=== PATIENT | male | born 1960 | race Caucasian/White ===

== ENCOUNTER 2017-05-14 18:16 | Inpatient (IN) | payer MEDICARE, OTHER ==
[~2017-05-14] VITALS: Ht 162.6 cm; Wt 61.6 kg
[~2017-05-14 18:16] MED LIST: ASPI-556 PO; CALC-724 PO; DOCU-269 PO; FERR324T4 PO; FLUV50TA2 PO; LEVO50TA4 PO; LORA-366 PO; LORA10TA7 PO; LOVA20TA3 PO; RISP.5 PO
[2017-05-14] MEDS ORDERED: AMOX1TAB15 PO (18:40)
[2017-05-14] MEDS ORDERED: SODIUM CHLORIDE 0.9% 1,000 ML IV ONE (19:30)
[2017-05-14 20:37] LABS: HEMATOCRIT 25.1 % (41-53); HEMOGLOBIN 8.7 g/dL (13.5-17.5); MEAN CORPUSCULAR HEMOGLOBIN 32.3 pg (26.0-34.0); MEAN CORPUSCULAR HGB CONC 34.7 G/dL (31.0-37.0); MEAN CORPUSCULAR VOLUME 93 fL (80-100); PLATELET COUNT (AUTO) 284 K/uL (150-450); RED CELL DISTRIBUTION WIDTH 13.9 % (11.5-14.5)
[2017-05-14 20:57] LABS: ALBUMIN 2.3 g/dL (3.4-5.0); CREATININE 1.35 mg/dL (0.60-1.30); POTASSIUM 3.8 mmol/L (3.5-5.1); TOTAL PROTEIN, SERUM 6.6 g/dL (6.4-8.2)
[2017-05-14 20:58] LABS: LACTIC ACID 1.1 mmol/L (0.4-2.0)
[2017-05-14 21:25] LABS: BAND NEUTROPHILS % (MANUAL) 14 % (1-5); BASOPHILS % (MANUAL) 2 % (0-2); EOSINOPHILS % (MANUAL) 2 % (1-6); LYMPHOCYTES % (MANUAL) 11 % (22-44); MONOCYTES % (MANUAL) 3 % (2-9); SEGMENTED NEUTROPHILS % 68 % (40-70)
[2017-05-14] MEDS ORDERED: PIPERACILLIN/TAZO 3.375 GM/D5W 50 ML IV ONE (21:30)
[2017-05-14] MEDS ORDERED: VANCOMYCIN HCL 1.25 GM in DEXTROSE 5%-WATER 250 ML IV ONE (21:30)
[2017-05-14 21:31] LABS: INFLUENZA TYPE A NEGATIVE FOR TYPE A (NEGATIVE); INFLUENZA TYPE B NEGATIVE FOR TYPE B (NEGATIVE)
[2017-05-14 21:39] LABS: BILIRUBIN,TOTAL 0.1 mg/dL (0.1-1.0); CALCIUM, TOTAL 8.3 mg/dL (8.8-10.5)
[2017-05-14] MEDS ORDERED: ACETAMINOPHEN 325 MG TABLET PO PRN ×2 (21:45→22:15)
[2017-05-14] MEDS ORDERED: VANCOMYCIN HCL 1 GM/D5% WATER 200 ML IV ONE (21:45)
[2017-05-14] MEDS ORDERED: ALBUTEROL SULFATE 2.5 MG/0.5 ML NEB SOLUTION NEB ONE (21:45)
[2017-05-14] MEDS ORDERED: 0.9% SODIUM CHLORIDE 10 ML SYRINGE IVP PRN (21:45)
[2017-05-14] MEDS ORDERED: ONDANSETRON HCL 4 MG/2 ML VIAL IVP PRN ×2 (21:45→22:15)
[2017-05-14] MEDS ORDERED: IPRATROPIUM BROMIDE 0.5 MG/2.5 ML NEB SOLUTION NEB ONE (21:45)
[2017-05-14] MEDS ORDERED: BISACODYL 10 MG RECTAL RECTAL SUPPOSITORY PR PRN (22:15)
[2017-05-14] MEDS ORDERED: HYDROCODONE/ACETAMINOPHEN 5-325 MG TABLET PO PRN (22:15)
[2017-05-14] MEDS ORDERED: MAGNESIUM HYDROXIDE SUSPENSION 30 ML UDCUP PO PRN (22:15)
[2017-05-14] MEDS ORDERED: MORPHINE SULFATE 2 MG/ML SYRINGE IVP PRN (22:15)
[2017-05-14 23:30] VITALS: BP 109/61
[2017-05-15] MEDS: HEPARIN SODIUM,PORCINE 5,000 UNITS/ML VIAL SQ SCH ×3 (00:07→17:01)
[2017-05-15 02:59] VITALS: BP 113/56
[2017-05-15] MEDS ORDERED: PIPERACILLIN/TAZO 3.375 GM/D5W 50 ML IV SCH (04:00)
[2017-05-15] MEDS: PIPERACILLIN/TAZO 3.375 GM/D5W 50 ML IV SCH ×4 (04:05→23:39)
[2017-05-15] MEDS: LEVOTHYROXINE SODIUM 50 MCG TABLET PO SCH (06:25)
[2017-05-15 06:37] LABS: BASOPHILS % (AUTO) 0.8 % (0.0-2.0); EOSINOPHILS % (AUTO) 0.2 % (1.0-6.0); HEMATOCRIT 25.1 % (41-53); HEMOGLOBIN 8.7 g/dL (13.5-17.5); LYMPHOCYTES # (AUTO) 1.2 K/uL (1.0-4.8); LYMPHOCYTES % (AUTO) 9.7 % (22.0-44.0); MEAN CORPUSCULAR HEMOGLOBIN 32.4 pg (26.0-34.0); MEAN CORPUSCULAR HGB CONC 34.8 G/dL (31.0-37.0); MEAN CORPUSCULAR VOLUME 93 fL (80-100); MONOCYTES # (AUTO) 2.1 K/uL (0.1-1.0); NEUTROPHILS # (AUTO) 8.8 K/uL (1.8-7.7); NEUTROPHILS % (AUTO) 72.3 % (40.0-70.0); PLATELET COUNT (AUTO) 277 K/uL (150-450); RED BLOOD CELL COUNT(AUTO) 2.69 MIL/uL (4.50-5.90); RED CELL DISTRIBUTION WIDTH 14.1 % (11.5-14.5)
[2017-05-15 06:54] LABS: CALCIUM, TOTAL 8.1 mg/dL (8.8-10.5); CREATININE 1.29 mg/dL (0.60-1.30); POTASSIUM 3.6 mmol/L (3.5-5.1)
[2017-05-15 08:00] VITALS: BP 111/64
[2017-05-15] MEDS: VANCOMYCIN HCL 750 MG in DEXTROSE 5%-WATER 150 ML IV SCH ×2 (09:20→20:51)
[2017-05-15] MEDS ORDERED: GuaiFENesin/D-METHORPHAN [SUGAR-FREE] 200-20MG/10 ML SYRUP UDCUP PO PRN (12:00)
[2017-05-15] MEDS ORDERED: IPRATROPIUM BROMIDE 0.5 MG/2.5 ML NEB SOLUTION NEB PRN (12:00)
[2017-05-15] MEDS ORDERED: ALBUTEROL SULFATE 2.5 MG/0.5 ML NEB SOLUTION NEB PRN (12:00)
[2017-05-15 12:18] VITALS: BP 121/69
[2017-05-15] MEDS: LORATADINE 10 MG TABLET PO SCH (14:35)
[2017-05-15] MEDS: PANTOPRAZOLE SODIUM 40 MG DR TABLET PO SCH (14:35)
[2017-05-15] MEDS: ASPIRIN 81 MG EC TABLET PO SCH (14:35)
[2017-05-15] MEDS: DOCUSATE SODIUM 100 MG CAPSULE PO SCH ×2 (14:35→20:50)
[2017-05-15] MEDS: FluvoxaMINE MALEATE 50 MG TABLET PO SCH ×2 (14:37→21:02)
[2017-05-15] MEDS: IPRATROPIUM BROMIDE 0.5 MG/2.5 ML NEB SOLUTION NEB SCH ×2 (15:55→19:53)
[2017-05-15] MEDS: ALBUTEROL SULFATE 2.5 MG/0.5 ML NEB SOLUTION NEB SCH ×2 (15:55→19:53)
[2017-05-15 16:13] VITALS: BP 107/61
[2017-05-15] MEDS: ZOLPIDEM TARTRATE 5 MG TABLET PO PRN (19:20)
[2017-05-15 19:22] VITALS: BP 148/70
[2017-05-15] MEDS: LOVASTATIN 20 MG TABLET PO SCH (20:50)
[2017-05-15 23:20] VITALS: BP 126/65
[2017-05-16] MEDS: HEPARIN SODIUM,PORCINE 5,000 UNITS/ML VIAL SQ SCH ×4 (01:16→23:40)
[2017-05-16] MEDS: ALBUTEROL SULFATE 2.5 MG/0.5 ML NEB SOLUTION NEB SCH ×4 (03:27→19:38)
[2017-05-16] MEDS: IPRATROPIUM BROMIDE 0.5 MG/2.5 ML NEB SOLUTION NEB SCH ×4 (03:27→19:38)
[2017-05-16 04:34] VITALS: BP 110/69
[2017-05-16] MEDS: PIPERACILLIN/TAZO 3.375 GM/D5W 50 ML IV SCH ×4 (04:51→23:38)
[2017-05-16] MEDS: LEVOTHYROXINE SODIUM 50 MCG TABLET PO SCH (06:06)
[2017-05-16 06:47] LABS: BASOPHILS % (AUTO) 1.3 % (0.0-2.0); EOSINOPHILS % (AUTO) 2.3 % (1.0-6.0); HEMATOCRIT 27.4 % (41-53); HEMOGLOBIN 9.8 g/dL (13.5-17.5); LYMPHOCYTES # (AUTO) 1.3 K/uL (1.0-4.8); LYMPHOCYTES % (AUTO) 12.6 % (22.0-44.0); MEAN CORPUSCULAR HGB CONC 35.6 G/dL (31.0-37.0); MEAN CORPUSCULAR VOLUME 93 fL (80-100); MONOCYTES # (AUTO) 1.8 K/uL (0.1-1.0); MONOCYTES % (AUTO) 17.3 % (2.0-9.0); NEUTROPHILS # (AUTO) 6.9 K/uL (1.8-7.7); NEUTROPHILS % (AUTO) 66.5 % (40.0-70.0); PLATELET COUNT (AUTO) 328 K/uL (150-450); RED BLOOD CELL COUNT(AUTO) 2.95 MIL/uL (4.50-5.90); RED CELL DISTRIBUTION WIDTH 13.8 % (11.5-14.5)
[2017-05-16 07:26] LABS: ANION GAP 8 mmol/L (8-16); CALCIUM, TOTAL 8.4 mg/dL (8.8-10.5); CARBON DIOXIDE 29 mmol/L (22-29); CHLORIDE 106 mmol/L (98-107); CREATININE 1.14 mg/dL (0.60-1.30); GLOMERULAR FILTR. RATE CALC > 60 mL/min (>60); GLUCOSE,RANDOM 100 mg/dL (70-110); POTASSIUM 3.6 mmol/L (3.5-5.1); SODIUM SERUM 143 mmol/L (136-145); UREA NITROGEN, BLOOD 17 mg/dL (7-18); VANCOMYCIN,RANDOM 17.6 mcg/mL (25.0-50.0)
[2017-05-16 08:01] VITALS: BP 106/67
[2017-05-16] MEDS: ASPIRIN 81 MG EC TABLET PO SCH (08:09)
[2017-05-16] MEDS: FluvoxaMINE MALEATE 50 MG TABLET PO SCH ×2 (08:09→21:50)
[2017-05-16] MEDS: VANCOMYCIN HCL 750 MG in DEXTROSE 5%-WATER 150 ML IV SCH ×2 (08:09→21:47)
[2017-05-16] MEDS: DOCUSATE SODIUM 100 MG CAPSULE PO SCH ×2 (08:09→21:50)
[2017-05-16] MEDS: PANTOPRAZOLE SODIUM 40 MG DR TABLET PO SCH (08:09)
[2017-05-16] MEDS: LORATADINE 10 MG TABLET PO SCH (08:09)
[2017-05-16] MEDS ORDERED: GuaiFENesin/D-METHORPHAN [SUGAR-FREE] 200-20MG/10 ML SYRUP UDCUP PO PRN (10:45)
[2017-05-16 12:00] VITALS: BP 101/53
[2017-05-16] MEDS: GuaiFENesin SR 600 MG ER TABLET PO SCH ×2 (12:25→21:50)
[2017-05-16 16:34] VITALS: BP 132/70
[2017-05-16] MEDS: LOVASTATIN 20 MG TABLET PO SCH (21:50)
[2017-05-16] MEDS: ZOLPIDEM TARTRATE 5 MG TABLET PO PRN (23:40)
[2017-05-16 23:51] VITALS: BP 124/76
[2017-05-17] MEDS: ALBUTEROL SULFATE 2.5 MG/0.5 ML NEB SOLUTION NEB SCH ×3 (02:08→14:41)
[2017-05-17] MEDS: IPRATROPIUM BROMIDE 0.5 MG/2.5 ML NEB SOLUTION NEB SCH ×2 (02:09→14:41)
[2017-05-17 04:00] VITALS: BP 100/55
[2017-05-17] MEDS: PIPERACILLIN/TAZO 3.375 GM/D5W 50 ML IV SCH ×3 (04:39→16:00)
[2017-05-17] MEDS: LEVOTHYROXINE SODIUM 50 MCG TABLET PO SCH (06:11)
[2017-05-17 07:02] LABS: BASOPHILS % (AUTO) 1.3 % (0.0-2.0); EOSINOPHILS % (AUTO) 3.5 % (1.0-6.0); HEMATOCRIT 27.3 % (41-53); HEMOGLOBIN 9.6 g/dL (13.5-17.5); LYMPHOCYTES # (AUTO) 1.6 K/uL (1.0-4.8); LYMPHOCYTES % (AUTO) 13.5 % (22.0-44.0); MEAN CORPUSCULAR HEMOGLOBIN 32.8 pg (26.0-34.0); MEAN CORPUSCULAR HGB CONC 35.3 G/dL (31.0-37.0); MEAN CORPUSCULAR VOLUME 93 fL (80-100); MONOCYTES # (AUTO) 1.5 K/uL (0.1-1.0); MONOCYTES % (AUTO) 13.1 % (2.0-9.0); NEUTROPHILS # (AUTO) 7.9 K/uL (1.8-7.7); NEUTROPHILS % (AUTO) 68.6 % (40.0-70.0); PLATELET COUNT (AUTO) 352 K/uL (150-450); RED BLOOD CELL COUNT(AUTO) 2.93 MIL/uL (4.50-5.90); RED CELL DISTRIBUTION WIDTH 13.9 % (11.5-14.5)
[2017-05-17 07:09] LABS: CALCIUM, TOTAL 8.2 mg/dL (8.8-10.5); CREATININE 1.32 mg/dL (0.60-1.30); POTASSIUM 3.9 mmol/L (3.5-5.1)
[2017-05-17 07:15] VITALS: BP 117/59
[2017-05-17] MEDS: ASPIRIN 81 MG EC TABLET PO SCH (07:56)
[2017-05-17] MEDS: LORATADINE 10 MG TABLET PO SCH (07:56)
[2017-05-17] MEDS: VANCOMYCIN HCL 750 MG in DEXTROSE 5%-WATER 150 ML IV SCH (07:56)
[2017-05-17] MEDS: PANTOPRAZOLE SODIUM 40 MG DR TABLET PO SCH (07:56)
[2017-05-17] MEDS: HEPARIN SODIUM,PORCINE 5,000 UNITS/ML VIAL SQ SCH ×2 (07:56→16:00)
[2017-05-17] MEDS: FluvoxaMINE MALEATE 50 MG TABLET PO SCH (07:56)
[2017-05-17] MEDS: DOCUSATE SODIUM 100 MG CAPSULE PO SCH (07:56)
[2017-05-17] MEDS: GuaiFENesin SR 600 MG ER TABLET PO SCH (07:56)
[2017-05-17 12:07] VITALS: BP 112/58
[2017-05-17 15:06] VITALS: BP 106/51
[2017-05-17] MEDS ORDERED: LEVO250 PO (15:24)
[2017-05-17] MEDS ORDERED: GUAIF600 PO (15:24)
[2017-05-17] MEDS ORDERED: ALBU8HFA IH (15:43)
[2017-05-17] MEDS ORDERED: CLIN300C3 PO (15:43)
== END 2017-05-17 16:20 | disposition home or self-care (01) | DRG 871 ==
LOC: EMS 19:10 → 5S 21:53
PROVIDERS: ADMIT Internal Medicine; ATTEND Internal Medicine
DX: A41.9 Sepsis, unspecified organism (principal); J69.0 Pneumonitis due to inhalation of food and vomit; E03.9 Hypothyroidism, unspecified; D64.9 Anemia, unspecified; E87.6 Hypokalemia; F20.9 Schizophrenia, unspecified; Y95 Nosocomial condition; E78.5 Hyperlipidemia, unspecified; Z91.013 Allergy to seafood; Z23 Encounter for immunization
CPT/HCPCS: 71046; 83605; 87040; 87804; 92526; 92610; 93005; 94640; 94668; J1644; J2543; J3370; J7030; J7060

== ENCOUNTER 2018-02-14 22:44 | Inpatient (IN) | payer MEDICARE, OTHER ==
[~2018-02-14] VITALS: Ht 149.9 cm; Wt 58.1 kg
[~2018-02-14 22:44] MED LIST changes: +ALBU8HFA IH; +CLIN300C3 PO; +GUAIF600 PO; +LEVO250 PO; -LORA-366 PO
[2018-02-14] MEDS ORDERED: IPRATROPIUM BROMIDE 0.5 MG/2.5 ML NEB SOLUTION NEB ONE (23:15)
[2018-02-14] MEDS ORDERED: ALBUTEROL SULFATE 2.5 MG/0.5 ML NEB SOLUTION NEB ONE (23:15)
[2018-02-14 23:37] LABS: BASOPHILS % (AUTO) 0.4 % (0.0-2.0); EOSINOPHILS % (AUTO) 0.1 % (1.0-6.0); HEMATOCRIT 28.7 % (41-53); LYMPHOCYTES # (AUTO) 0.3 K/uL (1.0-4.8); MEAN CORPUSCULAR HEMOGLOBIN 32.6 pg (26.0-34.0); MEAN CORPUSCULAR HGB CONC 34.7 G/dL (31.0-37.0); MEAN CORPUSCULAR VOLUME 94 fL (80-100); MONOCYTES # (AUTO) 0.2 K/uL (0.1-1.0); MONOCYTES % (AUTO) 3.9 % (2.0-9.0); NEUTROPHILS # (AUTO) 4.3 K/uL (1.8-7.7); PLATELET COUNT (AUTO) 194 K/uL (150-450); RED BLOOD CELL COUNT(AUTO) 3.06 MIL/uL (4.50-5.90); RED CELL DISTRIBUTION WIDTH 14.5 % (11.5-14.5)
[2018-02-14 23:40] LABS: NEUTROPHILS % (AUTO) 88.6 % (40.0-70.0)
[2018-02-14 23:48] LABS: PROTHROMBIN TIME 10.7 SEC (9.4-11.6)
[2018-02-14 23:53] LABS: ANION GAP 10 mmol/L (8-16); CALCIUM, TOTAL 8.1 mg/dL (8.8-10.5); CARBON DIOXIDE 26 mmol/L (22-29); CHLORIDE 101 mmol/L (98-107); CREATININE 1.58 mg/dL (0.60-1.30); GLOMERULAR FILTR. RATE CALC 46 mL/min (>60); GLUCOSE,RANDOM 110 mg/dL (70-110); POTASSIUM 3.5 mmol/L (3.5-5.1); SODIUM SERUM 137 mmol/L (136-145); UREA NITROGEN, BLOOD 36 mg/dL (7-18)
[2018-02-14 23:56] LABS: INFLUENZA TYPE A NEGATIVE FOR TYPE A (NEGATIVE); INFLUENZA TYPE B NEGATIVE FOR TYPE B (NEGATIVE)
[2018-02-15 00:02] LABS: LACTIC ACID 2.8 mmol/L (0.4-2.0)
[2018-02-15 00:03] LABS: B-TYPE NATRIURETIC PEPTIDE 27 pg/mL (0-100)
[2018-02-15 00:14] LABS: ALANINE AMINOTRANSFERASE 23 U/L (12-78); ALBUMIN 2.1 g/dL (3.4-5.0); ALKALINE PHOSPHATASE 63 U/L (46-116); ASPARTATE AMINOTRANSFERASE 50 U/L (15-37); BILIRUBIN,TOTAL 0.1 mg/dL (0.1-1.0); CREATINE KINASE, TOTAL ONLY 688 U/L (39-308); TOTAL PROTEIN, SERUM 6.7 g/dL (6.4-8.2)
[2018-02-15] MEDS ORDERED: ACETAMINOPHEN 325 MG TABLET PO ONE (00:45)
[2018-02-15] MEDS ORDERED: AZITHROMYCIN 500 MG/NS 250 ML IV ONE (00:45)
[2018-02-15] MEDS ORDERED: ALBUTEROL SULFATE 5 MG/ML 20 ML NEB SOLN [BULK] NEB ONE (00:45)
[2018-02-15] MEDS ORDERED: CefTRIAXone 1 GM/DEXTROSE 50 ML IV ONE (00:45)
[2018-02-15] MEDS ORDERED: SODIUM CHLORIDE 0.9% 1,000 ML IV ONE ×2 (00:45→04:30)
[2018-02-15] MEDS ORDERED: IPRATROPIUM BROMIDE 0.5 MG/2.5 ML NEB SOLUTION NEB ONE (00:45)
[2018-02-15] MEDS ORDERED: ALBUTEROL SULFATE 2.5 MG/0.5 ML NEB SOLUTION NEB ONE (00:45)
[2018-02-15] MEDS ORDERED: 0.9% SODIUM CHLORIDE 5 ML NEB SOLUTION NEB ONE (00:47)
[2018-02-15] MEDS ORDERED: LORazepam 2 MG/ML VIAL IVP ONE (01:00)
[2018-02-15] MEDS ORDERED: ACETAMINOPHEN 1000 MG/ISO-OSM 100 ML IV ONE (01:00)
[2018-02-15] MEDS ORDERED: MethylPREDNISolone SOD SUCC 125 MG/2 ML VIAL IVP ONE (01:45)
[2018-02-15] MEDS ORDERED: MAGNESIUM SULFATE 2 GM/WATER 50 ML IV ONE (01:45)
[2018-02-15 01:47] LABS: ABG A-A DIFF O2 471.3 mmHg (10-20.0); ABG BASE EXCESS -10.5 mmol/L (-2.0-3.0); ABG HCO3 16.5 mmol/L (22.0-26.0); ABG METHEMOGLOBIN 0.4 % (0.0-1.5); ABG OXYGEN CONTENT 12.1 mL/dL (15.0-23.0); ABG OXYGEN SATURATION 98.6 % (95.0-98.0); ABG OXYHEMOGLOBIN 97.2 % (94.0-100.0); ABG PCO2 45 mmHg (35-45); ABG TOTAL HEMOGLOBIN 8.5 G/dL (12.0-18.0); PO2, ARTERIAL BG 195.1 mmHg (84.0-92.0); SOURCE, BLOOD GAS ARTERIAL; TEMPERATURE, FAHRENHEIT, BG 99.8 FAHREN (96.0-98.6)
[2018-02-15 01:48] LABS: ABG PH 7.209 (7.35-7.450); SITE, BLOOD GAS RT RADIAL
[2018-02-15 01:49] LABS: O2 DEVICE,BLOOD GAS BIPAP (ROOM AIR); SPONTANEOUS VT, BG 620 ml
[2018-02-15] MEDS ORDERED: SUCCINYLCHOLINE CHLORIDE 20 MG/ML 10 ML VIAL ONE (01:58)
[2018-02-15] MEDS ORDERED: RAPID SEQUENCE KIT [RSI] 1 EACH KIT ONE ×2 (01:58→07:03)
[2018-02-15] MEDS ORDERED: PROPOFOL 1000 MG/ISO-OSM 100 ML IV PRN ×3 (02:15→10:30)
[2018-02-15] MEDS ORDERED: MIDAZOLAM HCL 5 MG/ML VIAL IVP ONE ×2 (02:30)
[2018-02-15] MEDS ORDERED: VANCOMYCIN HCL 1 GM/D5% WATER 200 ML IV ONE (02:45)
[2018-02-15] MEDS ORDERED: PIPERACILLIN/TAZO 3.375 GM/D5W 50 ML IV ONE ×2 (02:45→11:00)
[2018-02-15 02:52] LABS: ABG BASE EXCESS -10.6 mmol/L (-2.0-3.0); ABG CARBOXYHEMOGLOBIN 0.7 % (0.0-1.5); ABG HCO3 16.2 mmol/L (22.0-26.0); ABG METHEMOGLOBIN 0.4 % (0.0-1.5); ABG OXYGEN CONTENT 11.9 mL/dL (15.0-23.0); ABG OXYGEN SATURATION 96.6 % (95.0-98.0); ABG OXYHEMOGLOBIN 95.5 % (94.0-100.0); ABG PCO2 55 mmHg (35-45); ABG TOTAL HEMOGLOBIN 8.7 G/dL (12.0-18.0); PO2, ARTERIAL BG 117.3 mmHg (84.0-92.0); SOURCE, BLOOD GAS ARTERIAL; TEMPERATURE, FAHRENHEIT, BG 98.6 FAHREN (96.0-98.6)
[2018-02-15 02:53] LABS: ABG PH 7.144 (7.35-7.450); SITE, BLOOD GAS RT RADIAL
[2018-02-15] MEDS ORDERED: SODIUM CHLORIDE 0.9% 250 ML IV ONE (02:53)
[2018-02-15 02:54] LABS: O2 DEVICE,BLOOD GAS VENTILATOR (ROOM AIR); PEEP,BG 5 cm H2O; VT, ABG 400 ml
[2018-02-15] MEDS ORDERED: NOREPINEPHRINE 4 MG/D5%-WATER 250 ML IV PRN ×3 (03:15→12:15)
[2018-02-15 03:43] LABS: CALCIUM, TOTAL 6.2 mg/dL (8.8-10.5); CREATININE 1.49 mg/dL (0.60-1.30); POTASSIUM 3.4 mmol/L (3.5-5.1)
[2018-02-15 04:40] LABS: ABG A-A DIFF O2 538.7 mmHg (10-20.0); ABG BASE EXCESS -11.8 mmol/L (-2.0-3.0); ABG CARBOXYHEMOGLOBIN 0.5 % (0.0-1.5); ABG HCO3 15.7 mmol/L (22.0-26.0); ABG METHEMOGLOBIN 0.3 % (0.0-1.5); ABG OXYGEN CONTENT 14.7 mL/dL (15.0-23.0); ABG OXYGEN SATURATION 97.9 % (95.0-98.0); ABG OXYHEMOGLOBIN 97.1 % (94.0-100.0); ABG PCO2 39 mmHg (35-45); ABG PH 7.228 (7.35-7.450); ABG TOTAL HEMOGLOBIN 10.6 G/dL (12.0-18.0); SOURCE, BLOOD GAS ARTERIAL
[2018-02-15 04:41] LABS: O2 DEVICE,BLOOD GAS VENTILATOR (ROOM AIR); SITE, BLOOD GAS RT RADIAL
[2018-02-15 04:42] LABS: PEEP,BG 5 cm H2O; VT, ABG 450 ml
[2018-02-15] MEDS ORDERED: DOPamine HCL 400 MG/D5%-WATER 250 ML IV PRN (08:00)
[2018-02-15] MEDS ORDERED: POTASSIUM CHLORIDE 10% 40 MEQ/30 ML LIQUID UDCUP NG ONE (08:30)
[2018-02-15] MEDS ORDERED: BISACODYL 10 MG RECTAL RECTAL SUPPOSITORY PR PRN (08:30)
[2018-02-15] MEDS: DOCUSATE SODIUM 100 MG CAPSULE PO SCH ×2 (09:00→23:36)
[2018-02-15] MEDS: ASPIRIN 81 MG CHEWABLE TABLET PO SCH (09:00)
[2018-02-15] MEDS: PANTOPRAZOLE SODIUM 40 MG DR TABLET PO SCH (09:00)
[2018-02-15] MEDS ORDERED: NOREPINEPHRINE 4 MG/D5%-WATER 250 ML IV ONE (11:30)
[2018-02-15 12:30] VITALS: BP 119/77
[2018-02-15 13:00] VITALS: BP 139/78
[2018-02-15 16:00] VITALS: BP 97/65
[2018-02-15] MEDS: HEPARIN SODIUM,PORCINE 5,000 UNITS/ML VIAL SQ SCH ×2 (16:52→23:36)
[2018-02-15] MEDS: RINGERS SOLUTION,LACTATED 1,000 ML IV SCH (16:52)
[2018-02-15] MEDS: FLUDROCORTISONE ACETATE 0.1 MG TABLET PO SCH (18:16)
[2018-02-15] MEDS: HYDROCORTISONE SOD SUCC 100 MG/2 ML VIAL IVP SCH ×2 (18:17→23:36)
[2018-02-15] MEDS: VANCOMYCIN HCL 500 MG in DEXTROSE 5%-WATER 100 ML IV SCH (18:21)
[2018-02-15 20:00] VITALS: BP 95/58
[2018-02-15] MEDS: PROPOFOL 1000 MG/ISO-OSM 100 ML IV PRN (20:07)
[2018-02-15] MEDS: PIPERACILLIN/TAZO 3.375 GM/D5W 50 ML IV SCH (23:35)
[2018-02-16] VITALS (7 sets, daily range): BP systolic 92–127; BP diastolic 57–84
[2018-02-16] MEDS ORDERED: NOREPINEPHRINE 4 MG/D5%-WATER 250 ML IV PRN (03:39)
[2018-02-16] MEDS: PIPERACILLIN/TAZO 3.375 GM/D5W 50 ML IV SCH ×4 (03:41→21:17)
[2018-02-16] MEDS: RINGERS SOLUTION,LACTATED 1,000 ML IV SCH ×2 (05:56→21:17)
[2018-02-16] MEDS: VANCOMYCIN HCL 500 MG in DEXTROSE 5%-WATER 100 ML IV SCH ×2 (05:56→19:12)
[2018-02-16] MEDS: HYDROCORTISONE SOD SUCC 100 MG/2 ML VIAL IVP SCH ×3 (05:56→19:12)
[2018-02-16 06:32] LABS: HEMOGLOBIN 9.2 g/dL (13.5-17.5); MEAN CORPUSCULAR VOLUME 94 fL (80-100)
[2018-02-16 07:03] LABS: CALCIUM, TOTAL 7.3 mg/dL (8.8-10.5); CREATININE 1.28 mg/dL (0.60-1.30); MAGNESIUM 2.1 mg/dL (1.80-2.40); POTASSIUM 4.4 mmol/L (3.5-5.1)
[2018-02-16 07:08] LABS: HEMATOCRIT 27.6 % (41-53); MEAN CORPUSCULAR HEMOGLOBIN 31.4 pg (26.0-34.0); MEAN CORPUSCULAR HGB CONC 33.5 G/dL (31.0-37.0); PLATELET COUNT (AUTO) 141 K/uL (150-450); RED BLOOD CELL COUNT(AUTO) 2.94 MIL/uL (4.50-5.90); RED CELL DISTRIBUTION WIDTH 15.4 % (11.5-14.5)
[2018-02-16] MEDS: DOCUSATE SODIUM 100 MG CAPSULE PO SCH ×2 (08:50→21:00)
[2018-02-16] MEDS: ASPIRIN 81 MG CHEWABLE TABLET PO SCH (08:50)
[2018-02-16] MEDS: HEPARIN SODIUM,PORCINE 5,000 UNITS/ML VIAL SQ SCH ×2 (08:50→16:27)
[2018-02-16] MEDS: FLUDROCORTISONE ACETATE 0.1 MG TABLET PO SCH (08:50)
[2018-02-16] MEDS: PANTOPRAZOLE SODIUM 40 MG DR TABLET PO SCH (08:51)
[2018-02-16 08:55] LABS: BAND NEUTROPHILS % (MANUAL) 21 % (0-5); LYMPHOCYTES % (MANUAL) 4 % (22-44); MONOCYTES % (MANUAL) 5 % (2-9); SEGMENTED NEUTROPHILS % 70 % (40-70)
[2018-02-16] MEDS: PROPOFOL 1000 MG/ISO-OSM 100 ML IV PRN (12:35)
[2018-02-16 15:48] LABS: ABG A-A DIFF O2 106.7 mmHg (10-20.0); ABG BASE EXCESS -6.6 mmol/L (-2.0-3.0); ABG CARBOXYHEMOGLOBIN 0.4 % (0.0-1.5); ABG HCO3 19.9 mmol/L (22.0-26.0); ABG METHEMOGLOBIN 0.3 % (0.0-1.5); ABG OXYGEN CONTENT 13.6 mL/dL (15.0-23.0); ABG OXYGEN SATURATION 98.2 % (95.0-98.0); ABG OXYHEMOGLOBIN 97.5 % (94.0-100.0); ABG PCO2 27 mmHg (35-45); ABG PH 7.429 (7.35-7.450); ABG TOTAL HEMOGLOBIN 9.8 G/dL (12.0-18.0); SOURCE, BLOOD GAS ARTERIAL; TEMPERATURE, FAHRENHEIT, BG 98.6 FAHREN (96.0-98.6)
[2018-02-16 15:49] LABS: O2 DEVICE,BLOOD GAS VENTILATOR (ROOM AIR); PEEP,BG 5 cm H2O; SITE, BLOOD GAS LFT RADIAL; VT, ABG 450 ml
[2018-02-16 16:39] LABS: GLUCOSE,POINT OF CARE 104 MG/DL (70-110)
[2018-02-16] MEDS ORDERED: SODIUM CHLORIDE 0.9% 250 ML IV ONE (21:01)
[2018-02-17] VITALS: BP 137/73
[2018-02-17] MEDS: HYDROCORTISONE SOD SUCC 100 MG/2 ML VIAL IVP SCH ×4 (00:44→17:06)
[2018-02-17] MEDS: HEPARIN SODIUM,PORCINE 5,000 UNITS/ML VIAL SQ SCH ×3 (00:44→17:02)
[2018-02-17 04:00] VITALS: BP 112/72
[2018-02-17] MEDS: PIPERACILLIN/TAZO 3.375 GM/D5W 50 ML IV SCH ×4 (04:43→21:14)
[2018-02-17 05:25] LABS: ANION GAP 7 mmol/L (8-16); CALCIUM, TOTAL 7.5 mg/dL (8.8-10.5); CARBON DIOXIDE 24 mmol/L (22-29); CHLORIDE 112 mmol/L (98-107); CREATININE 1.19 mg/dL (0.60-1.30); GLOMERULAR FILTR. RATE CALC > 60 mL/min (>60); GLUCOSE,RANDOM 117 mg/dL (70-110); POTASSIUM 4.4 mmol/L (3.5-5.1); SODIUM SERUM 143 mmol/L (136-145); UREA NITROGEN, BLOOD 22 mg/dL (7-18); VANCOMYCIN,RANDOM 12.9 mcg/mL (25.0-50.0)
[2018-02-17] MEDS: PROPOFOL 1000 MG/ISO-OSM 100 ML IV PRN ×2 (05:26→16:57)
[2018-02-17] MEDS: VANCOMYCIN HCL 500 MG in DEXTROSE 5%-WATER 100 ML IV SCH (05:27)
[2018-02-17 07:47] LABS: BASOPHILS % (AUTO) 0.1 % (0.0-2.0); EOSINOPHILS % (AUTO) 0 % (1.0-6.0); HEMATOCRIT 28.6 % (41-53); HEMOGLOBIN 9.6 g/dL (13.5-17.5); LYMPHOCYTES # (AUTO) 1.1 K/uL (1.0-4.8); LYMPHOCYTES % (AUTO) 3.8 % (22.0-44.0); MEAN CORPUSCULAR HEMOGLOBIN 31.6 pg (26.0-34.0); MEAN CORPUSCULAR HGB CONC 33.4 G/dL (31.0-37.0); MEAN CORPUSCULAR VOLUME 95 fL (80-100); MONOCYTES # (AUTO) 1.4 K/uL (0.1-1.0); MONOCYTES % (AUTO) 4.7 % (2.0-9.0); NEUTROPHILS # (AUTO) 27.4 K/uL (1.8-7.7); PLATELET COUNT (AUTO) 156 K/uL (150-450); RED BLOOD CELL COUNT(AUTO) 3.02 MIL/uL (4.50-5.90); RED CELL DISTRIBUTION WIDTH 15.2 % (11.5-14.5)
[2018-02-17 07:51] LABS: NEUTROPHILS % (AUTO) 91.4 % (40.0-70.0)
[2018-02-17 08:00] VITALS: BP 118/77
[2018-02-17] MEDS: DOCUSATE SODIUM 100 MG CAPSULE PO SCH ×2 (09:00→21:14)
[2018-02-17] MEDS: ASPIRIN 81 MG CHEWABLE TABLET PO SCH (09:09)
[2018-02-17] MEDS: FLUDROCORTISONE ACETATE 0.1 MG TABLET PO SCH (09:10)
[2018-02-17] MEDS: PANTOPRAZOLE SODIUM 40 MG DR TABLET PO SCH (09:11)
[2018-02-17] MEDS ORDERED: DOPamine HCL 400 MG/D5%-WATER 250 ML IV PRN (09:54)
[2018-02-17 12:00] VITALS: BP 141/86
[2018-02-17] MEDS: RINGERS SOLUTION,LACTATED 1,000 ML IV SCH (15:13)
[2018-02-17 15:14] LABS: GLUCOSE,POINT OF CARE 120 MG/DL (70-110)
[2018-02-17 16:00] VITALS: BP 151/73
[2018-02-17] MEDS: VANCOMYCIN HCL 1 GM/D5% WATER 200 ML IV SCH (17:03)
[2018-02-17] MEDS: AZITHROMYCIN 250 MG TABLET PO SCH (17:08)
[2018-02-17 18:17] LABS: GLUCOSE,POINT OF CARE 153 MG/DL (70-110)
[2018-02-17 20:00] VITALS: BP 143/85
[2018-02-18] VITALS: BP 134/72
[2018-02-18] MEDS: RINGERS SOLUTION,LACTATED 1,000 ML IV SCH ×2 (00:46→15:25)
[2018-02-18] MEDS: HEPARIN SODIUM,PORCINE 5,000 UNITS/ML VIAL SQ SCH ×3 (00:48→15:30)
[2018-02-18] MEDS: HYDROCORTISONE SOD SUCC 100 MG/2 ML VIAL IVP SCH ×4 (00:48→17:14)
[2018-02-18] MEDS: PROPOFOL 1000 MG/ISO-OSM 100 ML IV PRN ×2 (02:26→09:03)
[2018-02-18] MEDS: PIPERACILLIN/TAZO 3.375 GM/D5W 50 ML IV SCH ×3 (03:06→15:30)
[2018-02-18 04:00] VITALS: BP 135/73
[2018-02-18 05:07] LABS: BASOPHILS % (AUTO) 0.3 % (0.0-2.0); EOSINOPHILS % (AUTO) 0 % (1.0-6.0); HEMATOCRIT 30.3 % (41-53); HEMOGLOBIN 10.1 g/dL (13.5-17.5); LYMPHOCYTES # (AUTO) 1.1 K/uL (1.0-4.8); LYMPHOCYTES % (AUTO) 4.3 % (22.0-44.0); MEAN CORPUSCULAR HEMOGLOBIN 31.2 pg (26.0-34.0); MEAN CORPUSCULAR HGB CONC 33.4 G/dL (31.0-37.0); MEAN CORPUSCULAR VOLUME 94 fL (80-100); MONOCYTES # (AUTO) 1.4 K/uL (0.1-1.0); MONOCYTES % (AUTO) 5.6 % (2.0-9.0); NEUTROPHILS # (AUTO) 21.9 K/uL (1.8-7.7); PLATELET COUNT (AUTO) 202 K/uL (150-450); RED BLOOD CELL COUNT(AUTO) 3.24 MIL/uL (4.50-5.90)
[2018-02-18 05:15] LABS: GLUCOSE,POINT OF CARE 134 MG/DL (70-110)
[2018-02-18 05:23] LABS: ALANINE AMINOTRANSFERASE 39 U/L (12-78); ALBUMIN 1.6 g/dL (3.4-5.0); ALKALINE PHOSPHATASE 64 U/L (46-116); ANION GAP 8 mmol/L (8-16); ASPARTATE AMINOTRANSFERASE 48 U/L (15-37); BILIRUBIN,TOTAL 0.3 mg/dL (0.1-1.0); CALCIUM, TOTAL 7.7 mg/dL (8.8-10.5); CARBON DIOXIDE 27 mmol/L (22-29); CHLORIDE 109 mmol/L (98-107); CREATININE 1.14 mg/dL (0.60-1.30); GLOMERULAR FILTR. RATE CALC > 60 mL/min (>60); GLUCOSE,RANDOM 151 mg/dL (70-110); POTASSIUM 3.3 mmol/L (3.5-5.1); SODIUM SERUM 144 mmol/L (136-145); UREA NITROGEN, BLOOD 21 mg/dL (7-18)
[2018-02-18 05:32] LABS: NEUTROPHILS % (AUTO) 89.8 % (40.0-70.0)
[2018-02-18] MEDS: VANCOMYCIN HCL 1 GM/D5% WATER 200 ML IV SCH ×2 (06:09→17:14)
[2018-02-18] MEDS ORDERED: POTASSIUM CHLORIDE 20 MEQ ER TABLET PO PRN ×3 (07:30→10:30)
[2018-02-18] MEDS ORDERED: POTASSIUM CHLORIDE 10% 40 MEQ/30 ML LIQUID UDCUP NG PRN ×2 (07:30)
[2018-02-18] MEDS ORDERED: POTASSIUM CHL 10 MEQ/WATER 50 ML IV PRN ×3 (07:30→10:30)
[2018-02-18 08:00] VITALS: BP 115/65
[2018-02-18] MEDS: AZITHROMYCIN 250 MG TABLET PO SCH (08:34)
[2018-02-18] MEDS: ASPIRIN 81 MG CHEWABLE TABLET PO SCH (08:34)
[2018-02-18] MEDS: FLUDROCORTISONE ACETATE 0.1 MG TABLET PO SCH (08:35)
[2018-02-18] MEDS: PANTOPRAZOLE SODIUM 40 MG DR TABLET PO SCH (08:35)
[2018-02-18] MEDS: DOCUSATE SODIUM 100 MG CAPSULE PO SCH ×2 (09:13→21:00)
[2018-02-18 12:00] VITALS: BP 104/65
[2018-02-18 15:24] LABS: GLUCOSE,POINT OF CARE 137 MG/DL (70-110)
[2018-02-18 16:00] VITALS: BP 115/65
[2018-02-18 19:04] LABS: GLUCOSE,POINT OF CARE 124 MG/DL (70-110)
[2018-02-18 20:00] VITALS: BP 137/74
[2018-02-18] MEDS: AMPICILLIN SODIUM/SULBACTAM NA 3 GM in SODIUM CHLORIDE 0.9% 100 ML IV SCH (20:50)
[2018-02-19] VITALS: BP 130/71
[2018-02-19] MEDS: HEPARIN SODIUM,PORCINE 5,000 UNITS/ML VIAL SQ SCH ×4 (00:46→23:56)
[2018-02-19] MEDS: HYDROCORTISONE SOD SUCC 100 MG/2 ML VIAL IVP SCH ×5 (00:46→23:56)
[2018-02-19] MEDS: PROPOFOL 1000 MG/ISO-OSM 100 ML IV PRN (01:02)
[2018-02-19] MEDS ORDERED: MIDAZOLAM HCL 100 MG in DEXTROSE 5%-WATER 180 ML IV PRN (02:14)
[2018-02-19] MEDS ORDERED: FentaNYL CITRATE PF 500 MCG in DEXTROSE 5%-WATER 90 ML IV PRN (02:14)
[2018-02-19] MEDS: RINGERS SOLUTION,LACTATED 1,000 ML IV SCH ×2 (02:27→15:50)
[2018-02-19] MEDS: AMPICILLIN SODIUM/SULBACTAM NA 3 GM in SODIUM CHLORIDE 0.9% 100 ML IV SCH ×4 (02:43→20:58)
[2018-02-19 04:00] VITALS: BP 131/68
[2018-02-19 05:03] LABS: BASOPHILS % (AUTO) 0.1 % (0.0-2.0); EOSINOPHILS % (AUTO) 0 % (1.0-6.0); LYMPHOCYTES # (AUTO) 1.5 K/uL (1.0-4.8); LYMPHOCYTES % (AUTO) 7.3 % (22.0-44.0); MEAN CORPUSCULAR HEMOGLOBIN 32.6 pg (26.0-34.0); MEAN CORPUSCULAR HGB CONC 34.6 G/dL (31.0-37.0); MEAN CORPUSCULAR VOLUME 94 fL (80-100); MONOCYTES # (AUTO) 1.6 K/uL (0.1-1.0); MONOCYTES % (AUTO) 7.7 % (2.0-9.0); NEUTROPHILS # (AUTO) 17.5 K/uL (1.8-7.7); NEUTROPHILS % (AUTO) 84.9 % (40.0-70.0); PLATELET COUNT (AUTO) 231 K/uL (150-450); RED BLOOD CELL COUNT(AUTO) 3.07 MIL/uL (4.50-5.90); RED CELL DISTRIBUTION WIDTH 14.7 % (11.5-14.5)
[2018-02-19 05:11] LABS: ALANINE AMINOTRANSFERASE 35 U/L (12-78); ALBUMIN 1.6 g/dL (3.4-5.0); ALKALINE PHOSPHATASE 57 U/L (46-116); ANION GAP 4 mmol/L (8-16); ASPARTATE AMINOTRANSFERASE 33 U/L (15-37); BILIRUBIN,TOTAL 0.2 mg/dL (0.1-1.0); CALCIUM, TOTAL 7.6 mg/dL (8.8-10.5); CARBON DIOXIDE 31 mmol/L (22-29); CHLORIDE 110 mmol/L (98-107); CREATININE 1.07 mg/dL (0.60-1.30); GLOMERULAR FILTR. RATE CALC > 60 mL/min (>60); GLUCOSE,RANDOM 158 mg/dL (70-110); POTASSIUM 3.9 mmol/L (3.5-5.1); SODIUM SERUM 145 mmol/L (136-145); TOTAL PROTEIN, SERUM 5.7 g/dL (6.4-8.2); UREA NITROGEN, BLOOD 21 mg/dL (7-18)
[2018-02-19] MEDS: POTASSIUM CHL 10 MEQ/WATER 50 ML IV PRN (07:13)
[2018-02-19 08:00] VITALS: BP 146/74
[2018-02-19 08:03] LABS: GLUCOSE,POINT OF CARE 118 MG/DL (70-110)
[2018-02-19 08:04] LABS: GLUCOSE,POINT OF CARE 139 MG/DL (70-110)
[2018-02-19] MEDS: PANTOPRAZOLE SODIUM 40 MG DR TABLET PO SCH (09:00)
[2018-02-19] MEDS: DOCUSATE SODIUM 100 MG CAPSULE PO SCH ×2 (09:00→20:58)
[2018-02-19] MEDS: AZITHROMYCIN 250 MG TABLET PO SCH (09:37)
[2018-02-19] MEDS: ASPIRIN 81 MG CHEWABLE TABLET PO SCH (09:37)
[2018-02-19] MEDS: FLUDROCORTISONE ACETATE 0.1 MG TABLET PO SCH (09:38)
[2018-02-19 10:10] LABS: ABG BASE EXCESS 0.7 mmol/L (-2.0-3.0); ABG CARBOXYHEMOGLOBIN 0.3 % (0.0-1.5); ABG HCO3 25.4 mmol/L (22.0-26.0); ABG METHEMOGLOBIN 0.3 % (0.0-1.5); ABG OXYGEN CONTENT 14.5 mL/dL (15.0-23.0); ABG OXYGEN SATURATION 95.6 % (95.0-98.0); ABG PCO2 33 mmHg (35-45); ABG PH 7.483 (7.35-7.450); ABG TOTAL HEMOGLOBIN 10.8 G/dL (12.0-18.0); PO2, ARTERIAL BG 78.1 mmHg (84.0-92.0); SOURCE, BLOOD GAS ARTERIAL; TEMPERATURE, FAHRENHEIT, BG 98.6 FAHREN (96.0-98.6)
[2018-02-19 10:13] LABS: CPAP, BG 0 cm H2O; O2 DEVICE,BLOOD GAS VENTILATOR (ROOM AIR); PEEP,BG 0 cm H2O; PRESSURE SUPPORT, BG 8 cm H2O; SITE, BLOOD GAS RT RADIAL; SPONTANEOUS VT, BG 548 ml; VENT MODE, BG SPONTANEOUS (ROOM AIR)
[2018-02-19] MEDS ORDERED: 0.9% SODIUM CHLORIDE 5 ML NEB SOLUTION NEB ONE (10:50)
[2018-02-19 12:00] VITALS: BP 131/68
[2018-02-19] MEDS: PANTOPRAZOLE SODIUM 40 MG/VIAL IVP SCH (15:51)
[2018-02-19 16:00] VITALS: BP 130/65
[2018-02-19 17:00] LABS: GLUCOSE,POINT OF CARE 135 MG/DL (70-110)
[2018-02-19 20:00] VITALS: BP 143/80
[2018-02-19 22:39] LABS: GLUCOSE,POINT OF CARE 100 MG/DL (70-110)
[2018-02-20] VITALS (7 sets, daily range): BP systolic 108–143; BP diastolic 59–100
[2018-02-20] MEDS ORDERED: 0.9% SODIUM CHLORIDE 5 ML NEB SOLUTION NEB ONE ×2 (01:02→08:07)
[2018-02-20] MEDS: ALBUTEROL SULFATE 2.5 MG/0.5 ML NEB SOLUTION NEB PRN ×2 (01:09→08:09)
[2018-02-20 01:13] LABS: ABG A-A DIFF O2 117.3 mmHg (10-20.0); ABG CARBOXYHEMOGLOBIN 0.6 % (0.0-1.5); ABG HCO3 26.6 mmol/L (22.0-26.0); ABG METHEMOGLOBIN 0.3 % (0.0-1.5); ABG OXYGEN CONTENT 15.6 mL/dL (15.0-23.0); ABG OXYGEN SATURATION 95.2 % (95.0-98.0); ABG OXYHEMOGLOBIN 94.3 % (94.0-100.0); ABG PCO2 32 mmHg (35-45); ABG PH 7.515 (7.35-7.450); ABG TOTAL HEMOGLOBIN 11.7 G/dL (12.0-18.0); O2 DEVICE,BLOOD GAS CANNULA (ROOM AIR); PO2, ARTERIAL BG 73.9 mmHg (84.0-92.0); SITE, BLOOD GAS RT RADIAL; SOURCE, BLOOD GAS ARTERIAL; TEMPERATURE, FAHRENHEIT, BG 98.6 FAHREN (96.0-98.6)
[2018-02-20] MEDS: HALOPERIDOL LACTATE 5 MG/ML VIAL IVP PRN (01:52)
[2018-02-20] MEDS: AMPICILLIN SODIUM/SULBACTAM NA 3 GM in SODIUM CHLORIDE 0.9% 100 ML IV SCH ×4 (02:58→20:07)
[2018-02-20] MEDS: ACETAMINOPHEN 325 MG TABLET PO PRN ×3 (03:05→20:07)
[2018-02-20] MEDS: RINGERS SOLUTION,LACTATED 1,000 ML IV SCH (05:12)
[2018-02-20] MEDS: HYDROCORTISONE SOD SUCC 100 MG/2 ML VIAL IVP SCH ×4 (05:43→23:43)
[2018-02-20 06:10] LABS: CALCIUM, TOTAL 7.9 mg/dL (8.8-10.5); CREATININE 1.29 mg/dL (0.60-1.30); POTASSIUM 3.3 mmol/L (3.5-5.1)
[2018-02-20 08:14] LABS: GLUCOSE,POINT OF CARE 75 MG/DL (70-110)
[2018-02-20 08:14] LABS: GLUCOSE,POINT OF CARE 76 MG/DL (70-110)
[2018-02-20] MEDS ORDERED: DEXTROSE 5%-WATER 1,000 ML IV ONE (08:15)
[2018-02-20] MEDS: HEPARIN SODIUM,PORCINE 5,000 UNITS/ML VIAL SQ SCH ×3 (08:33→23:41)
[2018-02-20] MEDS: PANTOPRAZOLE SODIUM 40 MG/VIAL IVP SCH (08:33)
[2018-02-20] MEDS: FLUDROCORTISONE ACETATE 0.1 MG TABLET PO SCH (08:34)
[2018-02-20] MEDS: POTASSIUM CHL 10 MEQ/WATER 50 ML IV PRN ×4 (08:35→18:08)
[2018-02-20] MEDS: ASPIRIN 81 MG CHEWABLE TABLET PO SCH (08:35)
[2018-02-20] MEDS: DOCUSATE SODIUM 100 MG CAPSULE PO SCH ×2 (09:00→21:00)
[2018-02-20] MEDS ORDERED: SODIUM CHLORIDE 0.9% 250 ML IV ONE (09:15)
[2018-02-20 09:22] LABS: LEGIONELLA PNEUMO AG URINE Negative (Negative); ORGANISM ID Not indicated.; S PNEUMO SOURCE Urine; STREP PNEUMONIAE AG URINE Negative (Negative); STREP.PNEUMO BODY FLUID CULT. Not Indicated
[2018-02-20] MEDS: AZITHROMYCIN 250 MG TABLET PO SCH (10:13)
[2018-02-20] MEDS ORDERED: ALBUTEROL SULFATE 2.5 MG/0.5 ML NEB SOLUTION NEB PRN (10:15)
[2018-02-20] MEDS ORDERED: IPRATROPIUM BROMIDE 0.5 MG/2.5 ML NEB SOLUTION NEB SCH (11:00)
[2018-02-20] MEDS: ALBUTEROL SULFATE 2.5 MG/0.5 ML NEB SOLUTION NEB SCH ×4 (11:30→23:04)
[2018-02-20] MEDS: IPRATROPIUM BROMIDE 0.5 MG/2.5 ML NEB SOLUTION NEB SCH ×4 (11:30→23:05)
[2018-02-20] MEDS ORDERED: IPRATROPIUM BROMIDE 0.5 MG/2.5 ML NEB SOLUTION NEB ONE (11:36)
[2018-02-20 18:45] LABS: GLUCOMETER DEV NAME(LOC) 5S.2; GLUCOSE,POINT OF CARE 146 MG/DL (70-110)
[2018-02-20 20:42] LABS: POTASSIUM 3.3 mmol/L (3.5-5.1)
[2018-02-20 22:49] LABS: GLUCOMETER DEV NAME(LOC) 5S.1; GLUCOSE,POINT OF CARE 175 MG/DL (70-110)
[2018-02-21] VITALS (13 sets, daily range): BP systolic 125–159; BP diastolic 56–85
[2018-02-21] MEDS: POTASSIUM CHL 10 MEQ/WATER 50 ML IV PRN ×9 (00:16→21:25)
[2018-02-21] MEDS: AMPICILLIN SODIUM/SULBACTAM NA 3 GM in SODIUM CHLORIDE 0.9% 100 ML IV SCH ×4 (02:31→20:18)
[2018-02-21] MEDS: ALBUTEROL SULFATE 2.5 MG/0.5 ML NEB SOLUTION NEB SCH ×6 (02:39→22:40)
[2018-02-21] MEDS: IPRATROPIUM BROMIDE 0.5 MG/2.5 ML NEB SOLUTION NEB SCH ×6 (02:39→22:40)
[2018-02-21] MEDS ORDERED: 0.9% SODIUM CHLORIDE 5 ML NEB SOLUTION NEB ONE (05:56)
[2018-02-21] MEDS: HYDROCORTISONE SOD SUCC 100 MG/2 ML VIAL IVP SCH ×2 (06:21→13:09)
[2018-02-21 06:40] LABS: GLUCOMETER DEV NAME(LOC) 5S.2; GLUCOSE,POINT OF CARE 166 MG/DL (70-110)
[2018-02-21 06:43] LABS: BASOPHILS % (AUTO) 0.1 % (0.0-2.0); EOSINOPHILS % (AUTO) 0 % (1.0-6.0); LYMPHOCYTES # (AUTO) 2.1 K/uL (1.0-4.8); LYMPHOCYTES % (AUTO) 8.7 % (22.0-44.0); MEAN CORPUSCULAR HEMOGLOBIN 32.2 pg (26.0-34.0); MEAN CORPUSCULAR HGB CONC 33.3 G/dL (31.0-37.0); MEAN CORPUSCULAR VOLUME 97 fL (80-100); MONOCYTES # (AUTO) 3.1 K/uL (0.1-1.0); MONOCYTES % (AUTO) 13.1 % (2.0-9.0); NEUTROPHILS # (AUTO) 18.5 K/uL (1.8-7.7); NEUTROPHILS % (AUTO) 78.1 % (40.0-70.0); PLATELET COUNT (AUTO) 301 K/uL (150-450); RED BLOOD CELL COUNT(AUTO) 2.16 MIL/uL (4.50-5.90); RED CELL DISTRIBUTION WIDTH 14.9 % (11.5-14.5)
[2018-02-21 06:47] LABS: CALCIUM, TOTAL 7.8 mg/dL (8.8-10.5); CREATININE 1.44 mg/dL (0.60-1.30); POTASSIUM 3.6 mmol/L (3.5-5.1)
[2018-02-21 07:02] LABS: ABG A-A DIFF O2 78.5 mmHg (10-20.0); ABG BASE EXCESS 1.1 mmol/L (-2.0-3.0); ABG CARBOXYHEMOGLOBIN 1.7 % (0.0-1.5); ABG HCO3 25.7 mmol/L (22.0-26.0); ABG METHEMOGLOBIN 0.1 % (0.0-1.5); ABG OXYGEN CONTENT 10.6 mL/dL (15.0-23.0); ABG OXYGEN SATURATION 97.9 % (95.0-98.0); ABG OXYHEMOGLOBIN 96.1 % (94.0-100.0); ABG PCO2 28 mmHg (35-45); ABG PH 7.542 (7.35-7.450); PO2, ARTERIAL BG 102.4 mmHg (84.0-92.0); SOURCE, BLOOD GAS ARTERIAL; TEMPERATURE, FAHRENHEIT, BG 98.5 FAHREN (96.0-98.6)
[2018-02-21 07:04] LABS: ABG TOTAL HEMOGLOBIN 7.7 G/dL (12.0-18.0); SITE, BLOOD GAS RT RADIAL
[2018-02-21 07:06] LABS: O2 DEVICE,BLOOD GAS BIPAP (ROOM AIR)
[2018-02-21] MEDS ORDERED: FUROSEMIDE 20 MG/2 ML VIAL IVP ONE (07:45)
[2018-02-21] MEDS ORDERED: SODIUM CHLORIDE 0.9% 100 ML ONE (08:22)
[2018-02-21] MEDS: DOCUSATE SODIUM 100 MG CAPSULE PO SCH ×2 (09:00→20:16)
[2018-02-21] MEDS ORDERED: SODIUM CHLORIDE 0.9% 250 ML IV ONE (10:37)
[2018-02-21] MEDS: MULTIVITAMINS WITH MINERALS, THERAPEUTIC TABLET PO SCH (10:48)
[2018-02-21] MEDS: AZITHROMYCIN 250 MG TABLET PO SCH (10:48)
[2018-02-21] MEDS: FLUDROCORTISONE ACETATE 0.1 MG TABLET PO SCH (10:49)
[2018-02-21] MEDS: ASPIRIN 81 MG CHEWABLE TABLET PO SCH (10:49)
[2018-02-21] MEDS: HEPARIN SODIUM,PORCINE 5,000 UNITS/ML VIAL SQ SCH ×3 (10:49→23:22)
[2018-02-21] MEDS: PANTOPRAZOLE SODIUM 40 MG/VIAL IVP SCH (10:49)
[2018-02-21] MEDS: ACETAMINOPHEN 325 MG TABLET PO PRN (11:05)
[2018-02-21] MEDS ORDERED: DEXTROSE 5%-WATER 1,000 ML IV ONE (13:15)
[2018-02-21] MEDS ORDERED: DEXTROSE 50%-WATER 25 GM/50 ML SYRINGE IVP PRN (18:00)
[2018-02-21] MEDS: INSULIN LISPRO 100 UNITS/ML SQ PRN ×2 (18:14→21:40)
[2018-02-21] MEDS: HALOPERIDOL LACTATE 5 MG/ML VIAL IVP PRN (23:25)
[2018-02-22] VITALS (7 sets, daily range): BP systolic 121–155; BP diastolic 72–93
[2018-02-22 00:39] LABS: GLUCOMETER DEV NAME(LOC) 5S.2; GLUCOSE,POINT OF CARE 168 MG/DL (70-110)
[2018-02-22 00:40] LABS: GLUCOMETER DEV NAME(LOC) 5S.1; GLUCOSE,POINT OF CARE 157 MG/DL (70-110)
[2018-02-22 00:40] LABS: GLUCOMETER DEV NAME(LOC) 5S.1; GLUCOSE,POINT OF CARE 151 MG/DL (70-110)
[2018-02-22] MEDS: AMPICILLIN SODIUM/SULBACTAM NA 3 GM in SODIUM CHLORIDE 0.9% 100 ML IV SCH ×4 (02:16→20:18)
[2018-02-22] MEDS: IPRATROPIUM BROMIDE 0.5 MG/2.5 ML NEB SOLUTION NEB SCH ×6 (03:02→22:58)
[2018-02-22] MEDS: ALBUTEROL SULFATE 2.5 MG/0.5 ML NEB SOLUTION NEB SCH ×6 (03:02→22:58)
[2018-02-22] MEDS: ACETAMINOPHEN 325 MG TABLET PO PRN (05:59)
[2018-02-22 07:00] LABS: HEMATOCRIT 22.6 % (41-53); HEMOGLOBIN 8.1 g/dL (13.5-17.5); MEAN CORPUSCULAR HEMOGLOBIN 34.2 pg (26.0-34.0); MEAN CORPUSCULAR VOLUME 95 fL (80-100); PLATELET COUNT (AUTO) 258 K/uL (150-450); RED BLOOD CELL COUNT(AUTO) 2.38 MIL/uL (4.50-5.90)
[2018-02-22 07:31] LABS: ANION GAP 5 mmol/L (8-16); CALCIUM, TOTAL 7.5 mg/dL (8.8-10.5); CARBON DIOXIDE 30 mmol/L (22-29); CHLORIDE 114 mmol/L (98-107); CREATININE 1.15 mg/dL (0.60-1.30); GLOMERULAR FILTR. RATE CALC > 60 mL/min (>60); GLUCOSE,RANDOM 89 mg/dL (70-110); POTASSIUM 3.1 mmol/L (3.5-5.1); SODIUM SERUM 149 mmol/L (136-145); UREA NITROGEN, BLOOD 16 mg/dL (7-18)
[2018-02-22] MEDS: MULTIVITAMINS WITH MINERALS, THERAPEUTIC TABLET PO SCH (08:09)
[2018-02-22] MEDS: ASPIRIN 81 MG CHEWABLE TABLET PO SCH (08:09)
[2018-02-22] MEDS: HEPARIN SODIUM,PORCINE 5,000 UNITS/ML VIAL SQ SCH ×3 (08:09→22:48)
[2018-02-22] MEDS: AZITHROMYCIN 250 MG TABLET PO SCH (08:09)
[2018-02-22] MEDS: DOCUSATE SODIUM 100 MG CAPSULE PO SCH ×2 (08:10→20:18)
[2018-02-22] MEDS: POTASSIUM CHL 10 MEQ/WATER 50 ML IV PRN ×3 (08:10→14:11)
[2018-02-22] MEDS: PANTOPRAZOLE SODIUM 40 MG/VIAL IVP SCH (08:10)
[2018-02-22] MEDS ORDERED: SODIUM CHLORIDE 0.9% 500 ML IV ONE (08:12)
[2018-02-22 08:27] LABS: BAND NEUTROPHILS % (MANUAL) 0 % (0-5)
[2018-02-22 08:28] LABS: CORRECTED WHITE BLOOD COUNT 14.1 K/uL (4.5-11.0); LYMPHOCYTES % (MANUAL) 10 % (22-44); MONOCYTES % (MANUAL) 11 % (2-9); SEGMENTED NEUTROPHILS % 79 % (40-70)
[2018-02-22] MEDS: HALOPERIDOL LACTATE 5 MG/ML VIAL IVP PRN (22:48)
[2018-02-23 00:05] VITALS: BP 139/84
[2018-02-23] MEDS: AMPICILLIN SODIUM/SULBACTAM NA 3 GM in SODIUM CHLORIDE 0.9% 100 ML IV SCH ×4 (02:49→20:35)
[2018-02-23] MEDS: ALBUTEROL SULFATE 2.5 MG/0.5 ML NEB SOLUTION NEB SCH ×6 (03:17→23:16)
[2018-02-23] MEDS: IPRATROPIUM BROMIDE 0.5 MG/2.5 ML NEB SOLUTION NEB SCH ×6 (03:17→23:16)
[2018-02-23] MEDS ORDERED: SODIUM CHLORIDE 0.9% 500 ML IV ONE (04:03)
[2018-02-23 05:02] VITALS: BP 126/76
[2018-02-23 06:00] LABS: BASOPHILS % (AUTO) 0.3 % (0.0-2.0); EOSINOPHILS % (AUTO) 1.3 % (1.0-6.0); HEMATOCRIT 25.2 % (41-53); HEMOGLOBIN 8.7 g/dL (13.5-17.5); LYMPHOCYTES % (AUTO) 6.9 % (22.0-44.0); MEAN CORPUSCULAR HEMOGLOBIN 33.2 pg (26.0-34.0); MEAN CORPUSCULAR HGB CONC 34.5 G/dL (31.0-37.0); MEAN CORPUSCULAR VOLUME 96 fL (80-100); MONOCYTES # (AUTO) 1.3 K/uL (0.1-1.0); MONOCYTES % (AUTO) 8.8 % (2.0-9.0); NEUTROPHILS # (AUTO) 12.2 K/uL (1.8-7.7); NEUTROPHILS % (AUTO) 82.7 % (40.0-70.0); PLATELET COUNT (AUTO) 267 K/uL (150-450); RED BLOOD CELL COUNT(AUTO) 2.62 MIL/uL (4.50-5.90); RED CELL DISTRIBUTION WIDTH 15.3 % (11.5-14.5)
[2018-02-23 06:03] LABS: ANION GAP 7 mmol/L (8-16); CARBON DIOXIDE 28 mmol/L (22-29); CHLORIDE 111 mmol/L (98-107); CREATININE 1.12 mg/dL (0.60-1.30); GLOMERULAR FILTR. RATE CALC > 60 mL/min (>60); GLUCOSE,RANDOM 84 mg/dL (70-110); POTASSIUM 3.7 mmol/L (3.5-5.1); SODIUM SERUM 146 mmol/L (136-145); UREA NITROGEN, BLOOD 14 mg/dL (7-18)
[2018-02-23 07:50] VITALS: BP 146/71
[2018-02-23 07:50] LABS: GLUCOMETER DEV NAME(LOC) 5S.2; GLUCOSE,POINT OF CARE 115 MG/DL (70-110)
[2018-02-23 07:50] LABS: GLUCOMETER DEV NAME(LOC) 5S.2; GLUCOSE,POINT OF CARE 95 MG/DL (70-110)
[2018-02-23 07:50] LABS: GLUCOMETER DEV NAME(LOC) 5S.2; GLUCOSE,POINT OF CARE 83 MG/DL (70-110)
[2018-02-23 07:50] LABS: GLUCOMETER DEV NAME(LOC) 5S.2; GLUCOSE,POINT OF CARE 106 MG/DL (70-110)
[2018-02-23 07:50] LABS: GLUCOMETER DEV NAME(LOC) 5S.2; GLUCOSE,POINT OF CARE 116 MG/DL (70-110)
[2018-02-23] MEDS: AZITHROMYCIN 250 MG TABLET PO SCH (09:25)
[2018-02-23] MEDS: PANTOPRAZOLE SODIUM 40 MG/VIAL IVP SCH (09:25)
[2018-02-23] MEDS: MULTIVITAMINS WITH MINERALS, THERAPEUTIC TABLET PO SCH (09:25)
[2018-02-23] MEDS: DOCUSATE SODIUM 100 MG CAPSULE PO SCH ×2 (09:26→20:35)
[2018-02-23] MEDS: ASPIRIN 81 MG CHEWABLE TABLET PO SCH (09:26)
[2018-02-23] MEDS: HEPARIN SODIUM,PORCINE 5,000 UNITS/ML VIAL SQ SCH ×3 (09:26→23:40)
[2018-02-23 11:26] VITALS: BP 140/81
[2018-02-23 15:27] VITALS: BP 152/65
[2018-02-23 19:56] VITALS: BP 133/80
[2018-02-23] MEDS: HALOPERIDOL LACTATE 5 MG/ML VIAL IVP PRN (21:35)
[2018-02-23 22:55] LABS: GLUCOMETER DEV NAME(LOC) 5S.2; GLUCOSE,POINT OF CARE 119 MG/DL (70-110)
[2018-02-23 22:55] LABS: GLUCOMETER DEV NAME(LOC) 5S.2; GLUCOSE,POINT OF CARE 92 MG/DL (70-110)
[2018-02-24 00:04] VITALS: BP 146/83
[2018-02-24] MEDS ORDERED: HydrALAZINE HCL 20 MG/ML VIAL ONE (01:22)
[2018-02-24] MEDS: IPRATROPIUM BROMIDE 0.5 MG/2.5 ML NEB SOLUTION NEB SCH ×6 (03:02→23:09)
[2018-02-24] MEDS: ALBUTEROL SULFATE 2.5 MG/0.5 ML NEB SOLUTION NEB SCH ×6 (03:02→23:09)
[2018-02-24] MEDS: AMPICILLIN SODIUM/SULBACTAM NA 3 GM in SODIUM CHLORIDE 0.9% 100 ML IV SCH ×4 (03:13→22:01)
[2018-02-24 04:09] VITALS: BP 138/82
[2018-02-24 07:01] LABS: BASOPHILS % (AUTO) 0.2 % (0.0-2.0); HEMATOCRIT 27.3 % (41-53); HEMOGLOBIN 9.6 g/dL (13.5-17.5); LYMPHOCYTES # (AUTO) 1.1 K/uL (1.0-4.8); LYMPHOCYTES % (AUTO) 5.4 % (22.0-44.0); MEAN CORPUSCULAR HEMOGLOBIN 33.8 pg (26.0-34.0); MEAN CORPUSCULAR VOLUME 97 fL (80-100); MONOCYTES # (AUTO) 1.5 K/uL (0.1-1.0); MONOCYTES % (AUTO) 7.7 % (2.0-9.0); PLATELET COUNT (AUTO) 341 K/uL (150-450); RED BLOOD CELL COUNT(AUTO) 2.83 MIL/uL (4.50-5.90); RED CELL DISTRIBUTION WIDTH 15.1 % (11.5-14.5)
[2018-02-24 07:08] LABS: ANION GAP 5 mmol/L (8-16); CARBON DIOXIDE 30 mmol/L (22-29); CHLORIDE 105 mmol/L (98-107); CREATININE 1.09 mg/dL (0.60-1.30); GLOMERULAR FILTR. RATE CALC > 60 mL/min (>60); GLUCOSE,RANDOM 94 mg/dL (70-110); POTASSIUM 3.7 mmol/L (3.5-5.1); SODIUM SERUM 140 mmol/L (136-145); UREA NITROGEN, BLOOD 13 mg/dL (7-18)
[2018-02-24 07:18] LABS: NEUTROPHILS % (AUTO) 85.7 % (40.0-70.0)
[2018-02-24 08:23] VITALS: BP 147/98
[2018-02-24] MEDS: HEPARIN SODIUM,PORCINE 5,000 UNITS/ML VIAL SQ SCH ×3 (08:38→23:50)
[2018-02-24] MEDS: MULTIVITAMINS WITH MINERALS, THERAPEUTIC TABLET PO SCH (08:39)
[2018-02-24] MEDS: PANTOPRAZOLE SODIUM 40 MG/VIAL IVP SCH (08:39)
[2018-02-24] MEDS: AZITHROMYCIN 250 MG TABLET PO SCH (08:39)
[2018-02-24] MEDS: ASPIRIN 81 MG CHEWABLE TABLET PO SCH (08:39)
[2018-02-24] MEDS: DOCUSATE SODIUM 100 MG CAPSULE PO SCH ×2 (08:39→20:48)
[2018-02-24] MEDS: HALOPERIDOL LACTATE 5 MG/ML VIAL IVP PRN ×2 (09:16→20:50)
[2018-02-24] MEDS: ACETAMINOPHEN 325 MG TABLET PO PRN (11:02)
[2018-02-24 11:37] VITALS: BP 106/56
[2018-02-24 12:00] LABS: GLUCOMETER DEV NAME(LOC) 5S.2; GLUCOSE,POINT OF CARE 88 MG/DL (70-110)
[2018-02-24 12:00] LABS: GLUCOMETER DEV NAME(LOC) 5S.2; GLUCOSE,POINT OF CARE 97 MG/DL (70-110)
[2018-02-24] MEDS: SCOPOLAMINE HYDROBROMIDE 1.5 MG PATCH TD SCH (15:23)
[2018-02-24 15:59] VITALS: BP 124/71
[2018-02-24] MEDS: POTASSIUM CHL 10 MEQ/WATER 50 ML IV PRN ×2 (16:36→18:25)
[2018-02-24 18:10] LABS: GLUCOMETER DEV NAME(LOC) 5S.1; GLUCOSE,POINT OF CARE 119 MG/DL (70-110)
[2018-02-24 19:40] VITALS: BP 123/62
[2018-02-25] VITALS (7 sets, daily range): BP systolic 95–130; BP diastolic 52–70
[2018-02-25] MEDS: ALBUTEROL SULFATE 2.5 MG/0.5 ML NEB SOLUTION NEB SCH ×6 (02:39→23:33)
[2018-02-25] MEDS: IPRATROPIUM BROMIDE 0.5 MG/2.5 ML NEB SOLUTION NEB SCH ×6 (02:39→23:33)
[2018-02-25] MEDS: AMPICILLIN SODIUM/SULBACTAM NA 3 GM in SODIUM CHLORIDE 0.9% 100 ML IV SCH ×4 (03:38→21:27)
[2018-02-25] MEDS: PANTOPRAZOLE SODIUM 40 MG/VIAL IVP SCH (09:13)
[2018-02-25] MEDS: ASPIRIN 81 MG CHEWABLE TABLET PO SCH (09:13)
[2018-02-25] MEDS: DOCUSATE SODIUM 100 MG CAPSULE PO SCH ×2 (09:13→20:09)
[2018-02-25] MEDS: MULTIVITAMINS WITH MINERALS, THERAPEUTIC TABLET PO SCH (09:14)
[2018-02-25] MEDS: HEPARIN SODIUM,PORCINE 5,000 UNITS/ML VIAL SQ SCH (09:15)
[2018-02-25] MEDS: AZITHROMYCIN 250 MG TABLET PO SCH (09:16)
[2018-02-25] MEDS ORDERED: HALOPERIDOL LACTATE 5 MG/ML VIAL IM PRN (10:30)
[2018-02-25] MEDS ORDERED: ZOLPIDEM TARTRATE 5 MG TABLET PO PRN (10:30)
[2018-02-25 10:38] LABS: BASOPHILS % (AUTO) 0.4 % (0.0-2.0); EOSINOPHILS % (AUTO) 0.5 % (1.0-6.0); HEMATOCRIT 27.5 % (41-53); HEMOGLOBIN 9.1 g/dL (13.5-17.5); LYMPHOCYTES # (AUTO) 1.5 K/uL (1.0-4.8); LYMPHOCYTES % (AUTO) 7.6 % (22.0-44.0); MEAN CORPUSCULAR HEMOGLOBIN 31.8 pg (26.0-34.0); MEAN CORPUSCULAR VOLUME 96 fL (80-100); MONOCYTES % (AUTO) 10.3 % (2.0-9.0); NEUTROPHILS % (AUTO) 81.2 % (40.0-70.0); PLATELET COUNT (AUTO) 358 K/uL (150-450); RED BLOOD CELL COUNT(AUTO) 2.85 MIL/uL (4.50-5.90); RED CELL DISTRIBUTION WIDTH 15.8 % (11.5-14.5)
[2018-02-25 12:30] LABS: GLUCOMETER DEV NAME(LOC) 5S.2; GLUCOSE,POINT OF CARE 86 MG/DL (70-110)
[2018-02-25 12:30] LABS: GLUCOMETER DEV NAME(LOC) 5S.2; GLUCOSE,POINT OF CARE 111 MG/DL (70-110)
[2018-02-25] MEDS: MetroNIDAZOLE 500 MG TABLET PO SCH ×2 (16:32→20:09)
[2018-02-25] MEDS: HALOPERIDOL LACTATE 5 MG/ML VIAL IVP PRN (16:33)
[2018-02-25] MEDS: CefTRIAXone 1 GM/DEXTROSE 50 ML IV SCH (20:09)
[2018-02-25] MEDS: ACETAMINOPHEN 325 MG TABLET PO PRN (20:09)
[2018-02-26] VITALS (7 sets, daily range): BP systolic 102–140; BP diastolic 55–99
[2018-02-26 00:44] LABS: GLUCOMETER DEV NAME(LOC) 5S.1; GLUCOSE,POINT OF CARE 120 MG/DL (70-110)
[2018-02-26] MEDS: AMPICILLIN SODIUM/SULBACTAM NA 3 GM in SODIUM CHLORIDE 0.9% 100 ML IV SCH ×2 (02:46→09:40)
[2018-02-26] MEDS: ALBUTEROL SULFATE 2.5 MG/0.5 ML NEB SOLUTION NEB SCH ×6 (03:24→23:39)
[2018-02-26] MEDS: IPRATROPIUM BROMIDE 0.5 MG/2.5 ML NEB SOLUTION NEB SCH ×6 (03:24→23:39)
[2018-02-26 06:25] LABS: BASOPHILS % (AUTO) 0.4 % (0.0-2.0); EOSINOPHILS % (AUTO) 0.3 % (1.0-6.0); HEMATOCRIT 24.8 % (41-53); HEMOGLOBIN 8.8 g/dL (13.5-17.5); LYMPHOCYTES # (AUTO) 0.9 K/uL (1.0-4.8); LYMPHOCYTES % (AUTO) 4.8 % (22.0-44.0); MEAN CORPUSCULAR HEMOGLOBIN 33.7 pg (26.0-34.0); MEAN CORPUSCULAR HGB CONC 35.3 G/dL (31.0-37.0); MEAN CORPUSCULAR VOLUME 96 fL (80-100); MONOCYTES % (AUTO) 9.9 % (2.0-9.0); NEUTROPHILS # (AUTO) 16.7 K/uL (1.8-7.7); NEUTROPHILS % (AUTO) 84.6 % (40.0-70.0); PLATELET COUNT (AUTO) 375 K/uL (150-450); RED CELL DISTRIBUTION WIDTH 15.6 % (11.5-14.5)
[2018-02-26 06:35] LABS: GLUCOMETER DEV NAME(LOC) 5S.2; GLUCOSE,POINT OF CARE 94 MG/DL (70-110)
[2018-02-26] MEDS: DOCUSATE SODIUM 100 MG CAPSULE PO SCH ×2 (09:00→20:54)
[2018-02-26] MEDS: MULTIVITAMINS WITH MINERALS, THERAPEUTIC TABLET PO SCH (09:40)
[2018-02-26] MEDS: ASPIRIN 81 MG CHEWABLE TABLET PO SCH (09:40)
[2018-02-26] MEDS: MetroNIDAZOLE 500 MG TABLET PO SCH ×3 (09:40→20:54)
[2018-02-26] MEDS: PANTOPRAZOLE SODIUM 40 MG/VIAL IVP SCH (09:41)
[2018-02-26] MEDS: ACETAMINOPHEN 325 MG TABLET PO PRN (09:46)
[2018-02-26] MEDS: INSULIN LISPRO 100 UNITS/ML SQ PRN ×2 (12:07→18:01)
[2018-02-26 17:20] LABS: GLUCOMETER DEV NAME(LOC) 5S.2; GLUCOSE,POINT OF CARE 86 MG/DL (70-110)
[2018-02-26] MEDS: CefTRIAXone 1 GM/DEXTROSE 50 ML IV SCH (20:54)
[2018-02-26] MEDS: HALOPERIDOL LACTATE 5 MG/ML VIAL IVP PRN (20:55)
[2018-02-27] LABS: GLUCOMETER DEV NAME(LOC) 5N.1; GLUCOSE,POINT OF CARE 83 MG/DL (70-110)
[2018-02-27] MEDS: IPRATROPIUM BROMIDE 0.5 MG/2.5 ML NEB SOLUTION NEB SCH ×6 (03:34→22:48)
[2018-02-27] MEDS: ALBUTEROL SULFATE 2.5 MG/0.5 ML NEB SOLUTION NEB SCH ×6 (03:34→22:48)
[2018-02-27 04:39] VITALS: BP 103/54
[2018-02-27 05:25] LABS: GLUCOMETER DEV NAME(LOC) 5S.1; GLUCOSE,POINT OF CARE 97 MG/DL (70-110)
[2018-02-27 05:25] LABS: GLUCOMETER DEV NAME(LOC) 5S.2; GLUCOSE,POINT OF CARE 87 MG/DL (70-110)
[2018-02-27 06:10] LABS: GLUCOMETER DEV NAME(LOC) 5S.1; GLUCOSE,POINT OF CARE 81 MG/DL (70-110)
[2018-02-27 06:45] LABS: EOSINOPHILS % (AUTO) 1.1 % (1.0-6.0); HEMATOCRIT 23.1 % (41-53); HEMOGLOBIN 8.3 g/dL (13.5-17.5); LYMPHOCYTES % (AUTO) 7.5 % (22.0-44.0); MEAN CORPUSCULAR HEMOGLOBIN 35.4 pg (26.0-34.0); MEAN CORPUSCULAR HGB CONC 35.8 G/dL (31.0-37.0); MEAN CORPUSCULAR VOLUME 99 fL (80-100); MONOCYTES # (AUTO) 1.9 K/uL (0.1-1.0); MONOCYTES % (AUTO) 13.9 % (2.0-9.0); NEUTROPHILS # (AUTO) 10.3 K/uL (1.8-7.7); NEUTROPHILS % (AUTO) 76.5 % (40.0-70.0); PLATELET COUNT (AUTO) 399 K/uL (150-450); RED BLOOD CELL COUNT(AUTO) 2.34 MIL/uL (4.50-5.90); RED CELL DISTRIBUTION WIDTH 15.3 % (11.5-14.5)
[2018-02-27 06:52] LABS: ALBUMIN 1.8 g/dL (3.4-5.0); BILIRUBIN,TOTAL 0.4 mg/dL (0.1-1.0); CALCIUM, TOTAL 8.1 mg/dL (8.8-10.5); CREATININE 1.32 mg/dL (0.60-1.30); POTASSIUM 3.7 mmol/L (3.5-5.1); TOTAL PROTEIN, SERUM 6.2 g/dL (6.4-8.2)
[2018-02-27 07:13] VITALS: BP 122/55
[2018-02-27] MEDS: ASPIRIN 81 MG CHEWABLE TABLET PO SCH (08:55)
[2018-02-27] MEDS: PANTOPRAZOLE SODIUM 40 MG/VIAL IVP SCH (08:55)
[2018-02-27] MEDS: MULTIVITAMINS WITH MINERALS, THERAPEUTIC TABLET PO SCH (08:55)
[2018-02-27] MEDS: SCOPOLAMINE HYDROBROMIDE 1.5 MG PATCH TD SCH (08:55)
[2018-02-27] MEDS: MetroNIDAZOLE 500 MG TABLET PO SCH ×3 (08:55→21:01)
[2018-02-27] MEDS: DOCUSATE SODIUM 100 MG CAPSULE PO SCH ×2 (08:56→21:00)
[2018-02-27 11:49] VITALS: BP 110/48
[2018-02-27] MEDS: INSULIN LISPRO 100 UNITS/ML SQ PRN ×3 (11:56→21:09)
[2018-02-27 16:28] VITALS: BP 137/57
[2018-02-27 17:50] LABS: GLUCOMETER DEV NAME(LOC) 5S.2; GLUCOSE,POINT OF CARE 113 MG/DL (70-110)
[2018-02-27 19:26] VITALS: BP 97/55
[2018-02-27] MEDS ORDERED: SODIUM CHLORIDE 0.9% 500 ML IV ONE (20:45)
[2018-02-27] MEDS: CefTRIAXone 1 GM/DEXTROSE 50 ML IV SCH (21:56)
[2018-02-27] MEDS ORDERED: SODIUM CHLORIDE 0.9% 1,000 ML IV SCH (22:00)
[2018-02-27 23:13] VITALS: BP 108/66
[2018-02-28] MEDS: IPRATROPIUM BROMIDE 0.5 MG/2.5 ML NEB SOLUTION NEB SCH ×6 (03:13→22:51)
[2018-02-28] MEDS: ALBUTEROL SULFATE 2.5 MG/0.5 ML NEB SOLUTION NEB SCH ×6 (03:13→22:51)
[2018-02-28 04:57] VITALS: BP 103/60
[2018-02-28] MEDS: HALOPERIDOL LACTATE 5 MG/ML VIAL IVP PRN (05:07)
[2018-02-28 06:05] LABS: GLUCOMETER DEV NAME(LOC) 5S.1; GLUCOSE,POINT OF CARE 90 MG/DL (70-110)
[2018-02-28 06:06] LABS: GLUCOMETER DEV NAME(LOC) 5S.1; GLUCOSE,POINT OF CARE 142 MG/DL (70-110)
[2018-02-28] MEDS: PANTOPRAZOLE SODIUM 40 MG/VIAL IVP SCH (08:10)
[2018-02-28] MEDS: MetroNIDAZOLE 500 MG TABLET PO SCH ×3 (08:11→21:40)
[2018-02-28] MEDS: DOCUSATE SODIUM 100 MG CAPSULE PO SCH ×2 (08:11→20:44)
[2018-02-28] MEDS: ASPIRIN 81 MG CHEWABLE TABLET PO SCH (08:11)
[2018-02-28] MEDS: MULTIVITAMINS WITH MINERALS, THERAPEUTIC TABLET PO SCH (08:11)
[2018-02-28 08:17] VITALS: BP 110/63
[2018-02-28 08:55] LABS: GLUCOMETER DEV NAME(LOC) 5S.2; GLUCOSE,POINT OF CARE 85 MG/DL (70-110)
[2018-02-28 11:09] LABS: BASOPHILS % (AUTO) 1.1 % (0.0-2.0); EOSINOPHILS % (AUTO) 1.3 % (1.0-6.0); HEMATOCRIT 24.7 % (41-53); HEMOGLOBIN 8.2 g/dL (13.5-17.5); LYMPHOCYTES % (AUTO) 11.7 % (22.0-44.0); MEAN CORPUSCULAR HEMOGLOBIN 31.4 pg (26.0-34.0); MEAN CORPUSCULAR HGB CONC 33.1 G/dL (31.0-37.0); MEAN CORPUSCULAR VOLUME 95 fL (80-100); MONOCYTES # (AUTO) 1.7 K/uL (0.1-1.0); MONOCYTES % (AUTO) 19.6 % (2.0-9.0); NEUTROPHILS # (AUTO) 5.9 K/uL (1.8-7.7); NEUTROPHILS % (AUTO) 66.3 % (40.0-70.0); PLATELET COUNT (AUTO) 470 K/uL (150-450); RED BLOOD CELL COUNT(AUTO) 2.61 MIL/uL (4.50-5.90); RED CELL DISTRIBUTION WIDTH 15.7 % (11.5-14.5)
[2018-02-28 11:27] LABS: ANION GAP 5 mmol/L (8-16); CALCIUM, TOTAL 7.9 mg/dL (8.8-10.5); CARBON DIOXIDE 29 mmol/L (22-29); CHLORIDE 108 mmol/L (98-107); CREATININE 1.24 mg/dL (0.60-1.30); GLOMERULAR FILTR. RATE CALC > 60 mL/min (>60); GLUCOSE,RANDOM 97 mg/dL (70-110); POTASSIUM 3.5 mmol/L (3.5-5.1); SODIUM SERUM 142 mmol/L (136-145); UREA NITROGEN, BLOOD 14 mg/dL (7-18)
[2018-02-28 11:42] VITALS: BP 108/59
[2018-02-28] MEDS ORDERED: SODIUM CHLORIDE 0.9% 250 ML IV ONE (12:13)
[2018-02-28] MEDS: POTASSIUM CHL 10 MEQ/WATER 50 ML IV SCH ×2 (12:14→13:36)
[2018-02-28 17:39] LABS: APPEARANCE,URINE CLEAR (CLEAR); BILIRUBIN,URINE NEGATIVE (NEGATIVE); GLUCOSE, URINE (UA) NEGATIVE (NEGATIVE); KETONES,URINE NEGATIVE (NEGATIVE); LEUKOCYTE ESTERASE ,URINE NEGATIVE (NEGATIVE); NITRATE,URINE NEGATIVE (NEGATIVE); OCCULT BLOOD,URINE SMALL (NEGATIVE); PROTEIN,URINE NEGATIVE (NEGATIVE); UROBILINOGEN,URINE 0.2 mg/dL (<=1.0)
[2018-02-28 18:21] LABS: RBC,URINE 0-2 /HPF (0-2); WBC,URINE 0-2 /HPF (0-5)
[2018-02-28 18:22] LABS: BACTERIA,URINE None Seen /HPF (None Seen); SQUAMOUS EPITHELIAL CELL,UR Rare /LPF (None Seen)
[2018-02-28 19:53] VITALS: BP 103/50
[2018-02-28] MEDS: CefTRIAXone 1 GM/DEXTROSE 50 ML IV SCH (20:47)
[2018-02-28 23:44] VITALS: BP 134/55
[2018-03-01] MEDS: IPRATROPIUM BROMIDE 0.5 MG/2.5 ML NEB SOLUTION NEB SCH ×6 (03:12→23:01)
[2018-03-01] MEDS: ALBUTEROL SULFATE 2.5 MG/0.5 ML NEB SOLUTION NEB SCH ×6 (03:12→23:01)
[2018-03-01 04:45] VITALS: BP 108/52
[2018-03-01 07:07] LABS: BASOPHILS % (AUTO) 1.6 % (0.0-2.0); EOSINOPHILS % (AUTO) 1.3 % (1.0-6.0); HEMATOCRIT 25.9 % (41-53); HEMOGLOBIN 8.7 g/dL (13.5-17.5); LYMPHOCYTES # (AUTO) 1.3 K/uL (1.0-4.8); LYMPHOCYTES % (AUTO) 14.5 % (22.0-44.0); MEAN CORPUSCULAR HEMOGLOBIN 31.9 pg (26.0-34.0); MEAN CORPUSCULAR HGB CONC 33.4 G/dL (31.0-37.0); MEAN CORPUSCULAR VOLUME 96 fL (80-100); MONOCYTES # (AUTO) 1.6 K/uL (0.1-1.0); MONOCYTES % (AUTO) 18.2 % (2.0-9.0); NEUTROPHILS # (AUTO) 5.6 K/uL (1.8-7.7); NEUTROPHILS % (AUTO) 64.4 % (40.0-70.0); PLATELET COUNT (AUTO) 542 K/uL (150-450); RED BLOOD CELL COUNT(AUTO) 2.71 MIL/uL (4.50-5.90); RED CELL DISTRIBUTION WIDTH 15.8 % (11.5-14.5)
[2018-03-01 07:29] VITALS: BP 149/94
[2018-03-01 07:30] LABS: ANION GAP 5 mmol/L (8-16); CALCIUM, TOTAL 8.2 mg/dL (8.8-10.5); CARBON DIOXIDE 29 mmol/L (22-29); CHLORIDE 106 mmol/L (98-107); CREATININE 1.13 mg/dL (0.60-1.30); GLOMERULAR FILTR. RATE CALC > 60 mL/min (>60); GLUCOSE,RANDOM 82 mg/dL (70-110); PHOSPHORUS 2.6 mg/dL (2.5-4.9); POTASSIUM 3.9 mmol/L (3.5-5.1); SODIUM SERUM 140 mmol/L (136-145); UREA NITROGEN, BLOOD 11 mg/dL (7-18)
[2018-03-01] MEDS: PANTOPRAZOLE SODIUM 40 MG/VIAL IVP SCH (07:59)
[2018-03-01] MEDS: ASPIRIN 81 MG CHEWABLE TABLET PO SCH (07:59)
[2018-03-01] MEDS: MULTIVITAMINS WITH MINERALS, THERAPEUTIC TABLET PO SCH (08:00)
[2018-03-01] MEDS: MetroNIDAZOLE 500 MG TABLET PO SCH ×3 (08:00→20:29)
[2018-03-01] MEDS: DOCUSATE SODIUM 100 MG CAPSULE PO SCH ×2 (08:00→20:28)
[2018-03-01 11:38] VITALS: BP 138/84
[2018-03-01] MEDS: HALOPERIDOL LACTATE 5 MG/ML VIAL IVP PRN (13:28)
[2018-03-01 15:52] VITALS: BP 115/71
[2018-03-01 19:39] VITALS: BP 144/59
[2018-03-01] MEDS: CefTRIAXone 1 GM/DEXTROSE 50 ML IV SCH (20:31)
[2018-03-01 23:42] VITALS: BP 118/58
[2018-03-02] MEDS: IPRATROPIUM BROMIDE 0.5 MG/2.5 ML NEB SOLUTION NEB SCH ×6 (02:52→22:48)
[2018-03-02] MEDS: ALBUTEROL SULFATE 2.5 MG/0.5 ML NEB SOLUTION NEB SCH ×6 (02:52→22:49)
[2018-03-02 04:17] VITALS: BP 110/53
[2018-03-02 07:13] VITALS: BP 101/59
[2018-03-02] MEDS: PANTOPRAZOLE SODIUM 40 MG/VIAL IVP SCH (07:58)
[2018-03-02] MEDS: ASPIRIN 81 MG CHEWABLE TABLET PO SCH (07:58)
[2018-03-02] MEDS: MetroNIDAZOLE 500 MG TABLET PO SCH ×3 (07:59→20:24)
[2018-03-02] MEDS: MULTIVITAMINS WITH MINERALS, THERAPEUTIC TABLET PO SCH (08:00)
[2018-03-02] MEDS: SCOPOLAMINE HYDROBROMIDE 1.5 MG PATCH TD SCH (08:00)
[2018-03-02] MEDS: DOCUSATE SODIUM 100 MG CAPSULE PO SCH ×2 (08:00→20:00)
[2018-03-02] MEDS: SODIUM CHLORIDE 0.9% 1,000 ML IV SCH (10:08)
[2018-03-02 11:19] VITALS: BP 112/62
[2018-03-02] MEDS ORDERED: SODIUM CHLORIDE 0.9% 100 ML ONE (20:01)
[2018-03-02 20:08] VITALS: BP 109/66
[2018-03-02] MEDS: CefTRIAXone 1 GM/DEXTROSE 50 ML IV SCH (20:24)
[2018-03-03 00:03] VITALS: BP 136/55
[2018-03-03] MEDS: SODIUM CHLORIDE 0.9% 1,000 ML IV SCH ×2 (03:16→20:22)
[2018-03-03] MEDS: IPRATROPIUM BROMIDE 0.5 MG/2.5 ML NEB SOLUTION NEB SCH ×6 (03:19→23:16)
[2018-03-03] MEDS: ALBUTEROL SULFATE 2.5 MG/0.5 ML NEB SOLUTION NEB SCH ×6 (03:19→23:17)
[2018-03-03 04:08] VITALS: BP 103/50
[2018-03-03 06:46] LABS: BASOPHILS % (AUTO) 2.1 % (0.0-2.0); EOSINOPHILS % (AUTO) 2.6 % (1.0-6.0); HEMATOCRIT 28.6 % (41-53); HEMOGLOBIN 9.4 g/dL (13.5-17.5); LYMPHOCYTES # (AUTO) 1.3 K/uL (1.0-4.8); LYMPHOCYTES % (AUTO) 19.4 % (22.0-44.0); MEAN CORPUSCULAR HEMOGLOBIN 31.7 pg (26.0-34.0); MEAN CORPUSCULAR HGB CONC 32.9 G/dL (31.0-37.0); MEAN CORPUSCULAR VOLUME 97 fL (80-100); MONOCYTES # (AUTO) 1.1 K/uL (0.1-1.0); MONOCYTES % (AUTO) 17.3 % (2.0-9.0); NEUTROPHILS # (AUTO) 3.9 K/uL (1.8-7.7); NEUTROPHILS % (AUTO) 58.6 % (40.0-70.0); PLATELET COUNT (AUTO) 643 K/uL (150-450); RED BLOOD CELL COUNT(AUTO) 2.96 MIL/uL (4.50-5.90); RED CELL DISTRIBUTION WIDTH 16.1 % (11.5-14.5)
[2018-03-03 07:04] LABS: GLUCOMETER DEV NAME(LOC) 5S.2; GLUCOSE,POINT OF CARE 74 MG/DL (70-110)
[2018-03-03 07:04] LABS: BILIRUBIN,TOTAL 0.3 mg/dL (0.1-1.0); CALCIUM, TOTAL 8.4 mg/dL (8.8-10.5); CREATININE 1.33 mg/dL (0.60-1.30); MAGNESIUM 2.2 mg/dL (1.80-2.40); PHOSPHORUS 3.2 mg/dL (2.5-4.9); POTASSIUM 3.8 mmol/L (3.5-5.1); TOTAL PROTEIN, SERUM 6.9 g/dL (6.4-8.2)
[2018-03-03 07:20] LABS: PROTHROMBIN TIME 13.5 SEC (9.4-11.6)
[2018-03-03 07:21] LABS: INR 1.3 (0.9-1.1)
[2018-03-03 07:25] VITALS: BP 100/58
[2018-03-03 10:07] LABS: CREATININE 1.34 mg/dL (0.60-1.30)
[2018-03-03 11:31] VITALS: BP 110/50
[2018-03-03] MEDS: ASPIRIN 81 MG CHEWABLE TABLET PO SCH (12:16)
[2018-03-03] MEDS: MetroNIDAZOLE 500 MG TABLET PO SCH ×3 (12:17→20:21)
[2018-03-03] MEDS: DOCUSATE SODIUM 100 MG CAPSULE PO SCH ×2 (12:17→20:21)
[2018-03-03] MEDS: MULTIVITAMINS WITH MINERALS, THERAPEUTIC TABLET PO SCH (12:17)
[2018-03-03] MEDS: PANTOPRAZOLE SODIUM 40 MG/VIAL IVP SCH (12:18)
[2018-03-03 16:00] VITALS: BP 106/55
[2018-03-03 19:44] VITALS: BP 136/46
[2018-03-03] MEDS: CefTRIAXone 1 GM/DEXTROSE 50 ML IV SCH (20:21)
[2018-03-04 00:07] VITALS: BP 108/50
[2018-03-04] MEDS: IPRATROPIUM BROMIDE 0.5 MG/2.5 ML NEB SOLUTION NEB SCH ×5 (03:18→19:09)
[2018-03-04] MEDS: ALBUTEROL SULFATE 2.5 MG/0.5 ML NEB SOLUTION NEB SCH ×5 (03:19→19:09)
[2018-03-04 05:13] VITALS: BP 130/45
[2018-03-04 05:16] LABS: GLUCOMETER DEV NAME(LOC) 5S.1; GLUCOSE,POINT OF CARE 92 MG/DL (70-110)
[2018-03-04 06:34] LABS: BASOPHILS % (AUTO) 3.2 % (0.0-2.0); EOSINOPHILS % (AUTO) 2.7 % (1.0-6.0); HEMATOCRIT 29.1 % (41-53); HEMOGLOBIN 9.5 g/dL (13.5-17.5); LYMPHOCYTES # (AUTO) 1.3 K/uL (1.0-4.8); LYMPHOCYTES % (AUTO) 18.6 % (22.0-44.0); MEAN CORPUSCULAR HEMOGLOBIN 31.4 pg (26.0-34.0); MEAN CORPUSCULAR HGB CONC 32.8 G/dL (31.0-37.0); MEAN CORPUSCULAR VOLUME 96 fL (80-100); MONOCYTES # (AUTO) 1.1 K/uL (0.1-1.0); MONOCYTES % (AUTO) 15.8 % (2.0-9.0); NEUTROPHILS % (AUTO) 59.7 % (40.0-70.0); PLATELET COUNT (AUTO) 688 K/uL (150-450); RED BLOOD CELL COUNT(AUTO) 3.03 MIL/uL (4.50-5.90); RED CELL DISTRIBUTION WIDTH 16.1 % (11.5-14.5)
[2018-03-04 06:59] LABS: CALCIUM, TOTAL 8.4 mg/dL (8.8-10.5); CREATININE 1.3 mg/dL (0.60-1.30); PHOSPHORUS 2.8 mg/dL (2.5-4.9); POTASSIUM 3.8 mmol/L (3.5-5.1)
[2018-03-04 07:32] VITALS: BP 130/55
[2018-03-04] MEDS: PANTOPRAZOLE SODIUM 40 MG/VIAL IVP SCH (08:10)
[2018-03-04] MEDS: MetroNIDAZOLE 500 MG TABLET PO SCH (08:11)
[2018-03-04] MEDS: ASPIRIN 81 MG CHEWABLE TABLET PO SCH (08:11)
[2018-03-04] MEDS: DOCUSATE SODIUM 100 MG CAPSULE PO SCH ×2 (08:11→19:45)
[2018-03-04] MEDS: MULTIVITAMINS WITH MINERALS, THERAPEUTIC TABLET PO SCH (08:11)
[2018-03-04 11:37] VITALS: BP 95/55
[2018-03-04] MEDS ORDERED: MULT-1203 PO (13:03)
[2018-03-04] MEDS ORDERED: IPRNEB IH (13:04)
[2018-03-04] MEDS ORDERED: PANT40TA25 PO (13:05)
[2018-03-04] MEDS ORDERED: ACET-2247 PO (13:08)
[2018-03-04] MEDS ORDERED: BISA5TAB12 PO (13:09)
[2018-03-04 15:50] VITALS: BP 100/50
[2018-03-04 19:27] VITALS: BP 108/69
== END 2018-03-04 22:25 | DRG 870 ==
LOC: EMS 22:44 → ICU 02-15 10:50 → 5S 02-20 12:30
PROVIDERS: ADMIT Internal Medicine; ATTEND Internal Medicine
PROC: 5A1955Z Respiratory Ventilation, Greater than 96 Consecutive Hours (ICD-10-PCS; principal; 2018-02-15)
PROC: 0BH17EZ Insertion of Endotracheal Airway into Trachea, Via Natural or Artificial Opening (ICD-10-PCS; 2018-02-15)
PROC: 30233N1 Transfusion of Nonautologous Red Blood Cells into Peripheral Vein, Percutaneous Approach (ICD-10-PCS; 2018-02-21)
PROC: 05H633Z Insertion of Infusion Device into Left Subclavian Vein, Percutaneous Approach (ICD-10-PCS; 2018-02-26)
PROC: B547ZZA Ultrasonography of Left Subclavian Vein, Guidance (ICD-10-PCS; 2018-02-26)
DX: A41.9 Sepsis, unspecified organism (principal); J96.00 Acute respiratory failure, unspecified whether with hypoxia or hypercapnia; J69.0 Pneumonitis due to inhalation of food and vomit; E43 Unspecified severe protein-calorie malnutrition; R65.21 Severe sepsis with septic shock; J96.01 Acute respiratory failure with hypoxia; N17.9 Acute kidney failure, unspecified; Z99.11 Dependence on respirator [ventilator] status; Q90.9 Down syndrome, unspecified; D64.9 Anemia, unspecified; E03.9 Hypothyroidism, unspecified; Z68.25 Body mass index [BMI] 25.0-25.9, adult; E87.6 Hypokalemia; N18.9 Chronic kidney disease, unspecified; I25.2 Old myocardial infarction; Z79.82 Long term (current) use of aspirin; Z79.899 Other long term (current) drug therapy
CPT/HCPCS: 36245; 51702; 76937; 82270; 82271; 82565; 82805; 83605; 83735; 84100; 84132; 86850; 86900; 86901; 86920; 87040; 87070; 87081; 87086; 87205; 87449; 87804; 87899; 92526; 92610; 93005; 93306; 94002; 94003; 94640; 94644; 94660; 94799; 99291; 99292; C9113; G0378; J0131; J0295; J0330; J0360; J0456; J0696; J1265; J1630; J1644; J1720; J1940; J2060; J2250; J2543; J2704; J2930; J3010; J3370; J3475; J3480; J3490; J7030; J7040; J7050; J7060; J7120; P9016